=== PATIENT | female | born 1965 | race Caucasian/White ===

== ENCOUNTER 2017-05-29 18:47 | Emergency (ER) | payer MEDICAID ==
--- NOTE | 2017-05-29 19:19 | EDM.PDOC ---
ED HPI GENERAL MEDICAL PROBLEM - General Chief Complaint: ENT Problem Stated Complaint: EAR AND THROAT HURT Time Seen by Provider: 05/29/17 18:51 Source of Information: Reports: Patient History Limitations: Reports: No Limitations - History of Present Illness INITIAL COMMENTS - FREE TEXT/NARRATIVE: 51 y.o.w.f came to the ed due to a sore throat and ear pain for 1 day. Pt is able to swallow well, with some discomfort, however. No F/C/N/V or any other acute medical issues. BP 135/67 Pulse ox 99% on RA Temp 36.7 Pulse 78 RR 18 Onset Date: 05/28/17 Onset Time: 07:00 Duration: Hour(s): Location: Reports: Face Quality: Reports: Ache, Burning Severity: Mild Improves with: Reports: None Worsens with: Reports: None Context: Reports: Other Associated Symptoms: Reports: No Other Symptoms Treatments [employer] ADMINISTRATOR: Reports: Acetaminophen, NSAIDS Sore throat, sore L ear Pain Score (Numeric/FACES): 8 - Related Data Allergies Allergy/AdvReac Type Severity Reaction Status Date / Time bee venom protein (honey bee) Allergy Swelling Verified 05/29/17 18:56 Penicillins Allergy Bronchospas Verified 05/29/17 18:56 ms wool Allergy Rash Verified 05/29/17 18:56 Home Meds: Home Meds EPINEPHrine [Epinephrine] 0.3 mg IM ASDIRECTED 05/29/17 [History] Lisinopril/Hydrochlorothiazide [Lisinopril-Hctz 10-12.5 mg Tab] 1 tab DAILY [History] Ondansetron [Zofran ODT] 4 mg PO Q6H PRN 05/29/17 [History] Oxybutynin 5 mg PO BID 05/29/17 [History] Venlafaxine HCl [Venlafaxine ER] 150 mg DAILY 05/29/17 [History] atorvaSTATin [Lipitor] 10 mg DAILY 05/29/17 [History] valACYclovir [Valtrex] 1,000 mg PO BID PRN 05/29/17 [History] Past Medical History Cardiovascular History: Reports: High Cholesterol, Hypertension Gastrointestinal History: Reports: GERD Genitourinary History: Reports: Urinary Incontinence Other Genitourinary History: nicked bladder during hyst & had problems with incont since-- is on Ditropan for same. DATA TECHNICAL LEAD History: Reports: Other OB/BYN History: [id number] Neurological History: Reports: Migraines Psychiatric History: Reports: Depression Endocrine/Metabolic History: Reports: Obesity/BMI 30+, Other (See Below) Other Endocrine/Metabolic History: is borderline diabetic - Infectious Disease History Infectious Disease History: Reports: Chicken Pox - Past Surgical History HEENT Surgical History: Reports: Adenoidectomy, Oral Surgery, Tonsillectomy GI Surgical History: Reports: None Female Surgical History: Reports: Section, Hysterectomy, Salpingo- Oophorectomy Social & Family History - Family History Family Medical History: Noncontributory - Tobacco Use Smoking Status *Q: Former Smoker Years of Tobacco use: 5 Used Tobacco, but Quit: Yes Month/Year Tobacco Last Used: feb - Caffeine Use Caffeine Use: Reports: Coffee, Energy Drinks, Soda - Recreational Drug Use Recreational Drug Use: No ED ROS ENT - Review of Systems Review Of Systems: See Below Constitutional: Reports: No Symptoms HEENT: Reports: Ear Pain, Throat Pain Respiratory: Reports: No Symptoms Cardiovascular: Reports: No Symptoms Endocrine: Reports: No Symptoms GI/Abdominal: Reports: No Symptoms : Reports: No Symptoms Musculoskeletal: Reports: No Symptoms Skin: Reports: No Symptoms Neurological: Reports: No Symptoms Psychiatric: Reports: No Symptoms Hematologic/Lymphatic: Reports: No Symptoms Immunologic: Reports: No Symptoms ED EXAM, ENT - Physical Exam Exam: See Below Exam Limited By: No Limitations General Appearance: Alert, WD/WN, Mild Distress Eye Exam: Bilateral Eye: Normal Inspection Ears: TM Dullness, TM Erythema Nose: Normal Inspection, Normal Mucousa, No Blood Mouth/Throat: Other (Pharygitis) Head: Atraumatic, Normocephalic Neck: Normal Inspection, Supple, Non-Tender, Full Range of Motion Respiratory/Chest: No Respiratory Distress, Lungs Clear, Normal Breath Sounds, No Accessory Muscle Use, Chest Non-Tender Cardiovascular: Normal Peripheral Pulses, Regular Rate, Rhythm, No Edema, No Gallop, No Murmur, No Rub GI/Abdominal: Normal Bowel Sounds, Soft, Non-Tender, No Organomegaly, No Distention (Female) Exam: Deferred Rectal (Female) Exam: Deferred Back: Normal Inspection, Full Range of Motion Extremities: Normal Inspection, Normal Range of Motion Neurological: Alert, Oriented, CN II-XII Intact, Normal Cognition, Normal Gait Psychiatric: Normal Affect Skin: Warm, Dry, Intact, Normal Color, No Rash Lymphatic: No Adenopathy Course - Vital Signs Text/Narrative:: 51 y.o.w.f came to the ed due to a sore throat and ear pain for 1 day. Pt is able to swallow well, with some discomfort, however. No F/C/N/V or any other acute medical issues. BP 135/67 Pulse ox 99% on RA Temp 36.7 Pulse 78 RR 18 PE: WNWD W F with earpain and a sore throat. R OM/OE Labs: RST was neg, Cx is pending Impression: Otitis media/externa, Pharyngitis strep presumed. Tx: Z pack Plan: D/C with instructions Last Recorded V/S: Last Vital Signs Temp 36.4 C 05/29/17 19:55 Pulse 84 05/29/17 18:51 Resp 17 05/29/17 19:55 BP 134/65 05/29/17 19:55 Pulse Ox 99 05/29/17 18:51 - Orders/Labs/Meds Orders: Active Orders 24 hr Category Date Time Status CULTURE STREP A CONFIRMATION [RM] Stat Lab 05/29/17 19:15 Results STREP SCRN A RAPID W CULT CONF [RM] Stat Lab 05/29/17 19:15 Results Departure - Departure Time of Disposition: 19:56 Disposition: Home, Self-Care 01 Condition: Good Clinical Impression: Otitis Qualifiers: Laterality: right Qualified Code(s): H66.91 - Otitis media, unspecified, right ear Pharyngitis Qualifiers: Pharyngitis/tonsillitis etiology: unspecified etiology Qualified Code(s): J02.9 - Acute pharyngitis, unspecified - Discharge Information Referrals: Meghan Reis PA-C [Primary Care Provider] - Forms: ED Department Discharge Additional Instructions: Please take the meds as recommended, increase water intake, please f/u, come back if your symptoms get worse acutely. - My Orders Last 24 Hours: My Active Orders 05/29/17 19:15 CULTURE STREP A CONFIRMATION [RM] Stat STREP SCRN A RAPID W CULT CONF [RM] Stat - Assessment/Plan Last 24 Hours: My Active Orders 05/29/17 19:15 CULTURE STREP A CONFIRMATION [RM] Stat STREP SCRN A RAPID W CULT CONF [RM] Stat
[2017-05-29] MEDS ORDERED: Azithromycin 250 MG Tab PO ONE (19:58)
== END 2017-05-29 20:06 | disposition home or self-care (01) ==
LOC: FB.ED 18:47
DX: J02.9 Acute pharyngitis, unspecified (principal); H66.91 Otitis media, unspecified, right ear; E78.00 Pure hypercholesterolemia, unspecified; I10 Essential (primary) hypertension; K21.9 Gastro-esophageal reflux disease without esophagitis; F32.9 Major depressive disorder, single episode, unspecified; Z91.030 Bee allergy status; Z88.0 Allergy status to penicillin; Z79.899 Other long term (current) drug therapy; Z87.891 Personal history of nicotine dependence
CPT/HCPCS: 87081; 87880; 99282; A9270

== ENCOUNTER → 2017-08-04 | Day surgery (SDC) | payer BC, MEDICAID ==
[~2017-08-04] MED LIST: Lactated Ringers 1,000 ML IV SCH; Midazolam 1 MG/ML 2 ML SDV IV ONE; Propofol 200 MG/20 ML SDV IV ONE; Sodium Chloride 0.9% 10 ML Syringe FLUSH PRN
--- NOTE | 2017-08-04 11:35 | PCM.OPNOTE ---
- General Post-Op/Procedure Note Date of Surgery/Procedure: 08/04/17 Operative Procedure(s): c scope Findings: normal exam Pre Op Diagnosis: +FIT Post-Op Diagnosis: nl scope Anesthesia Technique: MAC Primary Surgeon: Mike Vergara Anesthesia Provider: Darby Moura Pathology: none Complications: None Condition: Good Free Text/Narrative:: see dictation
--- NOTE | 2017-08-04 12:11 | OR ---
DATE OF OPERATION: 08/04/2017 SURGEON: Mike Vergara MD PROCEDURE PERFORMED: Colonoscopy. PREOPERATIVE DIAGNOSIS: Positive fecal immunological histochemical test. POSTOPERATIVE DIAGNOSIS: Normal scope. INDICATIONS FOR PROCEDURE: This is a 51-year-old white female who was noted to have a positive FIT examination. She was offered and accepted colonoscopy. DESCRIPTION OF PROCEDURE: After an excellent IV sedation was administered, digital rectal exam was performed. No marked abnormality was noted. The flexible colonoscope was inserted and advanced to the cecum without difficulty. The prep was excellent. The following findings were noted. Ascending colon, unremarkable. Transverse colon, unremarkable. Descending colon, unremarkable. Sigmoid and rectum, unremarkable. Colon was deflated as the scope was removed. The patient tolerated the procedure well and was taken to recovery room in a good condition. /[id number] /DIAL
== END | disposition home or self-care (01) ==
LOC: FB.SDS 08:39
PROVIDERS: ATTEND Surgery
DX: R19.5 Other fecal abnormalities (principal); I10 Essential (primary) hypertension; K21.9 Gastro-esophageal reflux disease without esophagitis; M85.80 Other specified disorders of bone density and structure, unspecified site; F33.9 Major depressive disorder, recurrent, unspecified; R73.9 Hyperglycemia, unspecified; Z79.899 Other long term (current) drug therapy; Z88.0 Allergy status to penicillin; Z91.030 Bee allergy status; Z91.048 Other nonmedicinal substance allergy status; Z87.891 Personal history of nicotine dependence
CPT/HCPCS: J2250; J2704; J7120

== ENCOUNTER 2019-10-28 09:05 | Inpatient (IN) | payer OTHER ==
[2019-10-28] MEDS ORDERED: Acetaminophen 325 MG Tab PO ONE (09:44)
[2019-10-28] MEDS ORDERED: Acetaminophen 650 MG Supp RECTAL ONE (09:44)
[2019-10-28] MEDS ORDERED: Ondansetron 4 MG/2 ML SDV IVPUSH ONE (09:45)
[2019-10-28] MEDS ORDERED: Sodium Chloride 0.9% 1,000 ML IV SCH (09:45)
[2019-10-28] MEDS ORDERED: Sodium Chloride 0.9% 10 ML Syringe FLUSH PRN (09:46)
--- NOTE | 2019-10-28 11:07 | EDM.PDOC ---
ED HPI GENERAL MEDICAL PROBLEM - General Chief Complaint: ENT Problem Stated Complaint: SOB, sore throat, vomiting Time Seen by Provider: 10/28/19 10:00 Source of Information: Reports: Patient, Old Records - History of Present Illness INITIAL COMMENTS - FREE TEXT/NARRATIVE: Neelam comes into [facility] ED with cough and sore throat over the past 36 hrs, and apparent fever and emesis this am. 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 She began to feel ill 2 days ago with headache, sore throat, chills, and muscle aches, ate little, and rested. Yesterday, there was nonproductive cough, worsening sore throat, earache, and malaise. This am, she came to the ED and promptly had a 400 ml dark emesis, guiac postive, temp to 102 deg F, tachypnea with 02 sats 97% on RA. She denies abdominal pain or voiding sxs. She took Tylenol at home. Throat, bilateral ears, generalized Pain Score (Numeric/FACES): 10 - Related Data Allergies Allergy/AdvReac Type Severity Reaction Status Date / Time bee venom protein (honey bee) Allergy Swelling Verified 10/28/19 09:31 Penicillins Allergy Bronchospas Verified 10/28/19 09:31 ms wool Allergy Rash Verified 10/28/19 09:31 Home Meds: Home Meds EPINEPHrine [Epinephrine] 0.3 mg IM ASDIRECTED 05/29/17 [History] Venlafaxine HCl [Venlafaxine ER] 150 mg PO DAILY 05/29/17 [History] atorvaSTATin [Lipitor] 10 mg PO DAILY 05/29/17 [History] valACYclovir [Valtrex] 1,000 mg PO DAILY 05/29/17 [History] Acetaminophen [Tylenol Extra Strength] 500 - 1,000 mg PO Q4HR PRN 08/03/17 [History] Naproxen Sodium [Aleve] 220 mg PO BID PRN 08/03/17 [History] SUMAtriptan succinate [Imitrex] 50 mg PO ASDIRECTED PRN 08/03/17 [History] lisinopriL [Prinivil] 40 mg PO DAILY 08/03/17 [History] Omeprazole 40 mg PO ACBREAKFAST 10/28/19 [History] Oxybutynin [Oxybutynin ER] 15 mg PO DAILY 10/28/19 [History] Past Medical History HEENT History: Reports: Impaired Vision Cardiovascular History: Reports: High Cholesterol, Hypertension Respiratory History: Reports: None Gastrointestinal History: Reports: GERD Genitourinary History: Reports: Urinary Incontinence Other Genitourinary History: nicked bladder during hyst & had problems with incont since-- is on Ditropan for same. 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 EPTOPIC . PARA III AB III Musculoskeletal History: Reports: None Neurological History: Reports: Migraines Psychiatric History: Reports: Depression Endocrine/Metabolic History: Reports: Obesity/BMI 30+, Other (See Below) Hematologic History: Reports: Anemia Immunologic History: Reports: None Oncologic (Cancer) History: Reports: None Dermatologic History: Reports: None - Infectious Disease History Infectious Disease History: Reports: Chicken Pox - Past Surgical History Head Surgeries/Procedures: Reports: None HEENT Surgical History: Reports: Adenoidectomy, Oral Surgery, Tonsillectomy GI Surgical History: Reports: None Female Surgical History: Reports: Section, Hysterectomy, Salpingo- Oophorectomy Social & Family History - Family History Family Medical History: Noncontributory GI: Reports: None - Caffeine Use Caffeine Use: Reports: Coffee, Energy Drinks, Soda ED ROS GENERAL - Review of Systems Review Of Systems: See Below Constitutional: Reports: Fever, Chills, Malaise, Weakness, Decreased Appetite HEENT: Reports: Ear Pain, Throat Pain Respiratory: Reports: Shortness of Breath, Cough Cardiovascular: Reports: No Symptoms Endocrine: Reports: Fatigue GI/Abdominal: Reports: Decreased Appetite, Nausea, Vomiting : Reports: No Symptoms Musculoskeletal: Reports: No Symptoms Skin: Reports: No Symptoms Neurological: Reports: No Symptoms Psychiatric: Reports: No Symptoms Hematologic/Lymphatic: Reports: No Symptoms Immunologic: Reports: No Symptoms ED EXAM, GENERAL - Physical Exam Exam: See Below Exam Limited By: No Limitations General Appearance: Alert, WD/WN, Mild Distress, Obese Eye Exam: Bilateral Eye: EOMI, Normal Inspection, PERRL Ears: Normal External Exam Nose: Normal Inspection Throat/Mouth: Normal Lips, Normal Gums, Normal Voice, Other (uvular edema and erythema, faucial erythema) Head: Atraumatic, Normocephalic Neck: Normal Inspection, Supple, Non-Tender Respiratory/Chest: No Respiratory Distress, Normal Breath Sounds, No Accessory Muscle Use, Crackles Cardiovascular: Normal Peripheral Pulses, Regular Rate, Rhythm, No Murmur GI/Abdominal: Normal Bowel Sounds, Soft, Non-Tender, No Organomegaly, No Distention, No Mass (Female) Exam: Deferred Rectal (Female) Exam: Deferred Back Exam: Normal Inspection Extremities: Normal Inspection Neurological: Alert, Oriented, CN II-XII Intact, Normal Cognition, Normal Gait, No Motor/Sensory Deficits Psychiatric: Normal Affect, Normal Mood Skin Exam: Warm, Dry, Intact, Normal Color, Tattoo(s) Lymphatic: No Adenopathy Course - Vital Signs Text/Narrative:: Following assessment, I obtained screening labs including Covid NEG, CRP 6.5, lactic acid 1.9, Hgb 13/8 gm, WBC 15,700, w 86 PMNs, 5 B, plts wnl; d dimer 1.39, lipase 60; chest x ray: heart normal size, no active infiltrates. A follow up CBC noted Hgb 12 gm, WBC 14,500; Infl Rapid Screen neg. Case discussed with hospitalist, and she will be admitted for further evaluation. Last Recorded V/S: Last Vital Signs Temp 39.3 C H 10/28/19 09:10 Pulse 115 H 10/28/19 09:10 Resp 36 H 10/28/19 09:10 BP 134/72 10/28/19 09:10 Pulse Ox 97 10/28/19 09:10 - Orders/Labs/Meds Orders: Active Orders 24 hr Category Date Time Status Chest 1V Frontal [CR] Stat Exams 10/28/19 09:44 Taken CULTURE BLOOD [BC] Urgent Lab 10/28/19 09:30 Received CULTURE BLOOD [BC] Urgent Lab 10/28/19 09:35 Results CULTURE STREP A CONFIRMATION [RM] Stat Lab 10/28/19 10:26 Results STREP SCRN A RAPID W CULT CONF [] Stat Lab 10/28/19 10:26 Results Dextrose 5%-Lactated Ringers 1,000 ml Med 10/28/19 11:30 Active IV ASDIRECTED Sodium Chloride 0.9% [Normal Saline] 1,000 ml Med 10/28/19 09:45 Active IV ASDIRECTED Sodium Chloride 0.9% [Saline Flush] Med 10/28/19 09:46 Active 10 ml FLUSH ASDIRECTED PRN Blood Culture x2 Reflex Set [OM.PC] Urgent Ot 10/28/19 09:46 Ordered Isolation [COMM] Routine [facility] 10/28/19 11:08 Ordered Peripheral IV Insertion Adult [OM.PC] Routine Ot 10/28/19 09:46 Ordered Medication Orders Sodium Chloride (Normal Saline) 1,000 mls @ 500 mls/hr IV ASDIRECTED CALLUM Last Admin: 10/28/19 09:50 Dose: 500 mls/hr Documented by: JASMIN Dextrose/Lactated Ringer's (Dextrose 5%-Lactated Ringers) 1,000 mls @ 150 mls/hr IV ASDIRECTED CALLUM Sodium Chloride (Saline Flush) 10 ml FLUSH ASDIRECTED PRN PRN Reason: Keep Vein Open Last Admin: 10/28/19 09:50 Dose: 10 ml Documented by: JASMIN Labs: Laboratory Tests 10/28/19 10/28/19 10/28/19 Range/Units 09:30 09:30 09:30 WBC 15.7 H (4.5-12.0) X10-3/uL RBC 4.75 (3.23-5.20) x10(6)uL Hgb 13.8 (11.5-15.5) g/dL Hct 42.9 (30.0-51.3) % MCV 90.3 (80-96) fL MCH 29.1 (27.7-33.6) pg MCHC 32.2 (32.2-35.4) g/dL RDW 15.2 (11.5-15.5) % Plt Count 212 (125-369) X10(3)uL MPV 8.4 (7.4-10.4) fL Neut % (Auto) (46-82) % Lymph % (Auto) (13-37) % [place] % (Auto) (4-12) % Eos % (Auto) (1.0-5.0) % Baso % (Auto) (0-2) % Neut # (Auto) (1.6-8.3) # Lymph # (Auto) (0.6-5.0) # [place] # (Auto) (0.0-1.3) # Eos # (Auto) (0.0-0.8) # Baso # (Auto) (0.0-0.2) # Add Manual Diff Yes Neutrophils % (Manual) 86 H (46-82) % Band Neutrophils % 5 (0-6) % Lymphocytes % (Manual) 5 L (13-37) % Monocytes % (Manual) 3 L (4-12) % Metamyelocytes % 1 H (0-0) % D-Dimer, Quantitative 1.39 H (0.0-0.59) mg/LFEU Sodium 133 L (135-145) mmol/L Potassium 4.4 (3.5-5.3) mmol/L Chloride 96 L (100-110) mmol/L Carbon Dioxide 29 (21-32) mmol/L BUN 10 (7-18) mg/dL Creatinine 0.9 (0.55-1.02) mg/dL Est Cr Clr Drug Dosing TNP Estimated GFR (MDRD) > 60 (>60) BUN/Creatinine Ratio 11.1 (9-20) Glucose 124 H (80-116) mg/dL Lactic Acid (0.4-2.0) mmol/L Calcium 8.3 L (8.6-10.2) mg/dL Total Bilirubin 0.5 (0.1-1.3) mg/dL AST 30 H (5-25) IU/L ALT 35 (12-36) U/L Alkaline Phosphatase 50 L (56-112) IU/L C-Reactive Protein (0.5-0.9) mg/dL Total Protein 6.1 (6.0-8.0) g/dL Albumin 3.2 L (3.5-5.2) g/dL Globulin 2.9 g/dL Albumin/Globulin Ratio 1.1 Lipase (73-393) U/L Urine Color (YELLOW) Urine Appearance (CLEAR) Urine pH (5.0-6.5) Ur Specific [place] (1.010-1.025) Urine Protein (NEGATIVE) mg/dL Urine Glucose (UA) (NORMAL) mg/dL Urine Ketones (NEGATIVE) mg/dL Urine Occult Blood (NEGATIVE) Urine Nitrite (NEGATIVE) Urine Bilirubin (NEGATIVE) Urine Urobilinogen (NEGATIVE) mg/dL Ur Leukocyte Esterase (NEGATIVE) Urine RBC (0-5) Urine WBC (0-5) Ur Squamous Epith Cells (NS,R,O) Urine Bacteria (NS) SARS-CoV-2 RNA (LAWSON) (NEGATIVE) 10/28/19 10/28/19 10/28/19 Range/Units 09:30 09:30 10:00 WBC (4.5-12.0) X10-3/uL RBC (3.23-5.20) x10(6)uL Hgb (11.5-15.5) g/dL Hct (30.0-51.3) % MCV (80-96) fL MCH (27.7-33.6) pg MCHC (32.2-35.4) g/dL RDW (11.5-15.5) % Plt Count (125-369) X10(3)uL MPV (7.4-10.4) fL Neut % (Auto) (46-82) % Lymph % (Auto) (13-37) % [place] % (Auto) (4-12) % Eos % (Auto) (1.0-5.0) % Baso % (Auto) (0-2) % Neut # (Auto) (1.6-8.3) # Lymph # (Auto) (0.6-5.0) # [place] # (Auto) (0.0-1.3) # Eos # (Auto) (0.0-0.8) # Baso # (Auto) (0.0-0.2) # Add Manual Diff Neutrophils % (Manual) (46-82) % Band Neutrophils % (0-6) % Lymphocytes % (Manual) (13-37) % Monocytes % (Manual) (4-12) % Metamyelocytes % (0-0) % D-Dimer, Quantitative (0.0-0.59) mg/LFEU Sodium (135-145) mmol/L Potassium (3.5-5.3) mmol/L Chloride (100-110) mmol/L Carbon Dioxide (21-32) mmol/L BUN (7-18) mg/dL Creatinine (0.55-1.02) mg/dL Est Cr Clr Drug Dosing Estimated GFR (MDRD) (>60) BUN/Creatinine Ratio (9-20) Glucose (80-116) mg/dL Lactic Acid 1.9 (0.4-2.0) mmol/L Calcium (8.6-10.2) mg/dL Total Bilirubin (0.1-1.3) mg/dL AST (5-25) IU/L ALT (12-36) U/L Alkaline Phosphatase (56-112) IU/L C-Reactive Protein 6.5 H* (0.5-0.9) mg/dL Total Protein (6.0-8.0) g/dL Albumin (3.5-5.2) g/dL Globulin g/dL Albumin/Globulin Ratio Lipase (73-393) U/L Urine Color (YELLOW) Urine Appearance (CLEAR) Urine pH (5.0-6.5) Ur Specific [place] (1.010-1.025) Urine Protein (NEGATIVE) mg/dL Urine Glucose (UA) (NORMAL) mg/dL Urine Ketones (NEGATIVE) mg/dL Urine Occult Blood (NEGATIVE) Urine Nitrite (NEGATIVE) Urine Bilirubin (NEGATIVE) Urine Urobilinogen (NEGATIVE) mg/dL Ur Leukocyte Esterase (NEGATIVE) Urine RBC (0-5) Urine WBC (0-5) Ur Squamous Epith Cells (NS,R,O) Urine Bacteria (NS) SARS-CoV-2 RNA (LAWSON) Negative (NEGATIVE) 10/28/19 10/28/19 10/28/19 Range/Units 10:05 12:50 13:25 WBC 14.5 H (4.5-12.0) X10-3/uL RBC 4.08 (3.23-5.20) x10(6)uL Hgb 12.0 (11.5-15.5) g/dL Hct 36.3 (30.0-51.3) % MCV 89.1 (80-96) fL MCH 29.5 (27.7-33.6) pg MCHC 33.1 (32.2-35.4) g/dL RDW 14.8 (11.5-15.5) % Plt Count 196 (125-369) X10(3)uL MPV 8.4 (7.4-10.4) fL Neut % (Auto) 89.3 H (46-82) % Lymph % (Auto) 7.7 L (13-37) % [place] % (Auto) 2.1 L (4-12) % Eos % (Auto) 0 L (1.0-5.0) % Baso % (Auto) 1 (0-2) % Neut # (Auto) 13.0 H (1.6-8.3) # Lymph # (Auto) 1.1 (0.6-5.0) # [place] # (Auto) 0.3 (0.0-1.3) # Eos # (Auto) 0.0 (0.0-0.8) # Baso # (Auto) 0.1 (0.0-0.2) # Add Manual Diff Neutrophils % (Manual) (46-82) % Band Neutrophils % (0-6) % Lymphocytes % (Manual) (13-37) % Monocytes % (Manual) (4-12) % Metamyelocytes % (0-0) % D-Dimer, Quantitative (0.0-0.59) mg/LFEU Sodium (135-145) mmol/L Potassium (3.5-5.3) mmol/L Chloride (100-110) mmol/L Carbon Dioxide (21-32) mmol/L BUN (7-18) mg/dL Creatinine (0.55-1.02) mg/dL Est Cr Clr Drug Dosing Estimated GFR (MDRD) (>60) BUN/Creatinine Ratio (9-20) Glucose (80-116) mg/dL Lactic Acid (0.4-2.0) mmol/L Calcium (8.6-10.2) mg/dL Total Bilirubin (0.1-1.3) mg/dL AST (5-25) IU/L ALT (12-36) U/L Alkaline Phosphatase (56-112) IU/L C-Reactive Protein (0.5-0.9) mg/dL Total Protein (6.0-8.0) g/dL Albumin (3.5-5.2) g/dL Globulin g/dL Albumin/Globulin Ratio Lipase 60 L (73-393) U/L Urine Color Yellow (YELLOW) Urine Appearance Clear (CLEAR) Urine pH 8.0 H (5.0-6.5) Ur Specific [place] 1.010 (1.010-1.025) Urine Protein Negative (NEGATIVE) mg/dL Urine Glucose (UA) Normal (NORMAL) mg/dL Urine Ketones Negative (NEGATIVE) mg/dL Urine Occult Blood Negative (NEGATIVE) Urine Nitrite Negative (NEGATIVE) Urine Bilirubin Negative (NEGATIVE) Urine Urobilinogen Normal (NEGATIVE) mg/dL Ur Leukocyte Esterase Negative (NEGATIVE) Urine RBC 0-5 (0-5) Urine WBC 0-5 (0-5) Ur Squamous Epith Cells Occasional (NS,R,O) Urine Bacteria Rare H (NS) SARS-CoV-2 RNA (LAWSON) (NEGATIVE) Meds: Medications Generic Name Dose Route Start Last Admin Trade Name Freq PRN Reason Stop Dose Admin Sodium Chloride 1,000 mls @ 500 mls/hr 10/28/19 09:45 10/28/19 09:50 Normal Saline IV 500 mls/hr ASDIRECTED CALLUM Administration Dextrose/Lactated Ringer's 1,000 mls @ 150 mls/hr 10/28/19 11:30 Dextrose 5%-Lactated Ringers IV ASDIRECTED CALLUM Sodium Chloride 10 ml 10/28/19 09:46 10/28/19 09:50 Saline Flush FLUSH 10 ml ASDIRECTED PRN Administration Keep Vein Open Discontinued Medications Generic Name Dose Route Start Last Admin Trade Name Kalyani PRN Reason Stop Dose Admin Acetaminophen 650 mg 10/28/19 09:44 10/28/19 09:35 Tylenol PO 10/28/19 09:45 650 mg NOW ONE Administration Acetaminophen 650 mg 10/28/19 09:44 10/28/19 10:17 Tylenol RECTAL 10/28/19 09:45 650 mg NOW ONE Administration Ondansetron HCl 8 mg 10/28/19 09:45 10/28/19 10:14 Zofran IVPUSH 10/28/19 09:46 8 mg ONETIME ONE Administration Pantoprazole Sodium 40 mg 10/28/19 11:08 Protonix Iv IVPUSH 10/28/19 11:09 ONETIME ONE Departure - Departure Time of Disposition: 13:54 Disposition: Admitted As Inpatient 66 Condition: Fair Clinical Impression: Leukocytosis, unspecified Qualifiers: Leukocytosis type: unspecified Qualified Code(s): D72.829 - Elevated white blood cell count, unspecified - Discharge Information *PRESCRIPTION DRUG MONITORING PROGRAM REVIEWED*: Not Applicable *COPY OF PRESCRIPTION DRUG MONITORING REPORT IN PATIENT FABIAN: Not Applicable Referrals: PCP,None [Primary Care Provider] - Forms: ED Department Discharge Sepsis Event Note (ED) - Evaluation Sepsis Screening Result: Possible Sepsis Risk - Focused Exam Vital Signs: Vital Signs Temp Pulse Resp BP Pulse Ox 10/28/19 09:10 39.3 C H 115 H 36 H 134/72 97 - Problem List & Annotations (1) Leukocytosis, unspecified SNOMED Code(s): 665588915, [id number] Code(s): D72.829 - ELEVATED WHITE BLOOD CELL COUNT, UNSPECIFIED Status: Acute Current Visit: Yes Annotation/Comment:: Hospitalist to assume care and continue medical management. Qualifiers: Leukocytosis type: unspecified Qualified Code(s): D72.829 - Elevated white blood cell count, unspecified - Problem List Review Problem List Initiated/Reviewed/Updated: Yes - My Orders Last 24 Hours: My Active Orders 10/28/19 09:30 CULTURE BLOOD [BC] Urgent 10/28/19 09:35 CULTURE BLOOD [BC] Urgent 10/28/19 09:44 Chest 1V Frontal [CR] Stat 10/28/19 09:45 Sodium Chloride 0.9% [Normal Saline] 1,000 ml IV ASDIRECTED 10/28/19 09:46 Sodium Chloride 0.9% [Saline Flush] 10 ml FLUSH ASDIRECTED PRN Blood Culture x2 Reflex Set [OM.PC] Urgent Peripheral IV Insertion Adult [OM.PC] Routine 10/28/19 10:26 CULTURE STREP A CONFIRMATION [RM] Stat STREP SCRN A RAPID W CULT CONF [RM] Stat 10/28/19 11:08 Isolation [COMM] Routine 10/28/19 11:30 Dextrose 5%-Lactated Ringers 1,000 ml IV ASDIRECTED - Assessment/Plan Last 24 Hours: My Active Orders 10/28/19 09:30 CULTURE BLOOD [BC] Urgent 10/28/19 09:35 CULTURE BLOOD [BC] Urgent 10/28/19 09:44 Chest 1V Frontal [CR] Stat 10/28/19 09:45 Sodium Chloride 0.9% [Normal Saline] 1,000 ml IV ASDIRECTED 10/28/19 09:46 Sodium Chloride 0.9% [Saline Flush] 10 ml FLUSH ASDIRECTED PRN Blood Culture x2 Reflex Set [OM.PC] Urgent Peripheral IV Insertion Adult [OM.PC] Routine 10/28/19 10:26 CULTURE STREP A CONFIRMATION [RM] Stat STREP SCRN A RAPID W CULT CONF [RM] Stat 10/28/19 11:08 Isolation [COMM] Routine 10/28/19 11:30 Dextrose 5%-Lactated Ringers 1,000 ml IV ASDIRECTED Plan: Per hospitalist.
[2019-10-28] MEDS ORDERED: Pantoprazole 40 MG Vial IVPUSH ONE (11:08)
[2019-10-28] MEDS ORDERED: Lactated Ringers 1,000 ML IV ONE (11:30)
[2019-10-28] MEDS ORDERED: Dextrose 5%-Lactated Ringers 1,000 ML IV SCH (11:30)
[2019-10-28] MEDS ORDERED: Pantoprazole 40 MG Vial ONE (13:54)
[2019-10-28] MEDS: Lactated Ringers 1,000 ML IV SCH ×2 (14:20→22:18)
[2019-10-28] MEDS ORDERED: Ondansetron 4 MG/2 ML SDV IVPUSH PRN (14:35)
--- NOTE | 2019-10-28 14:52 | PCM.HP.2 ---
H&P History of Present Illness - General Date of Service: 10/28/19 Admit Problem/Dx: Admission Diagnosis/Problem Admission Diagnosis/Problem Leukocytosis Source of Information: Patient, EMS Notes Reviewed - History of Present Illness Initial Comments - Free Text/Narative: Neelam is 54 yr old female that presented to [facility] ED for 3 day history of non-productive cough, sore throat, muscle aches, headaches, chills. 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 She was not aware she had a fever until it was checked here, it was 102F. She was 97% RA. Told ER doc that she had an emesis this morning but stated to me that she had some nausea but no vomiting until she was in the ED, she had a 400 cc coffee ground emesis in ER that was guaiac positive for blood. History of heartburn, takes Omeprazole but never had an EGD before. She regularly sees Meghan Reis NP at [facility]. She took Tylenol this morning for headache/body aches. In ER her WBC was 15.7, 86% neutrophils, lactic acid 1.9, CRP 6.5, D Dimer 1.39. Sodium 133, Chloride 96, Creatinine 0.9. ALT 35, AST 30, Alkaline phosphatase 50, albumin 3.2. Lipase low at 60. COVID was negative. Influenza negative. Strep negative. CXR, portable unremarkable. Throat, bilateral ears, generalized Pain Score (Numeric/FACES): 10 - Related Data Allergies/Adverse Reactions: Allergies Allergy/AdvReac Type Severity Reaction Status Date / Time bee venom protein (honey bee) Allergy Swelling Verified 10/28/19 09:31 Penicillins Allergy Bronchospas Verified 10/28/19 09:31 ms wool Allergy Rash Verified 10/28/19 09:31 Home Medications: Home Meds EPINEPHrine [Epinephrine] 0.3 mg IM ASDIRECTED 05/29/17 [History] Venlafaxine HCl [Venlafaxine ER] 150 mg PO DAILY 05/29/17 [History] atorvaSTATin [Lipitor] 10 mg PO DAILY 05/29/17 [History] valACYclovir [Valtrex] 1,000 mg PO DAILY 05/29/17 [History] Acetaminophen [Tylenol Extra Strength] 500 - 1,000 mg PO Q4HR PRN 08/03/17 [History] Naproxen Sodium [Aleve] 220 mg PO BID PRN 08/03/17 [History] SUMAtriptan succinate [Imitrex] 50 mg PO ASDIRECTED PRN 08/03/17 [History] lisinopriL [Prinivil] 40 mg PO DAILY 08/03/17 [History] Omeprazole 40 mg PO ACBREAKFAST 10/28/19 [History] Oxybutynin [Oxybutynin ER] 15 mg PO DAILY 10/28/19 [History] Past Medical History HEENT History: Reports: Impaired Vision Cardiovascular History: Reports: High Cholesterol, Hypertension Respiratory History: Reports: None Gastrointestinal History: Reports: GERD Genitourinary History: Reports: Urinary Incontinence Other Genitourinary History: nicked bladder during hyst & had problems with incont since-- is on Ditropan for same. 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 EPTOPIC . PARA III AB III Musculoskeletal History: Reports: None Neurological History: Reports: Migraines Psychiatric History: Reports: Depression Endocrine/Metabolic History: Reports: Obesity/BMI 30+, Other (See Below) Hematologic History: Reports: Anemia Immunologic History: Reports: None Oncologic (Cancer) History: Reports: None Dermatologic History: Reports: None - Infectious Disease History Infectious Disease History: Reports: Chicken Pox - Past Surgical History Head Surgeries/Procedures: Reports: None HEENT Surgical History: Reports: Adenoidectomy, Oral Surgery, Tonsillectomy GI Surgical History: Reports: None Female Surgical History: Reports: Section, Hysterectomy, Salpingo- Oophorectomy Social & Family History - Family History Family Medical History: Noncontributory GI: Reports: None - Tobacco Use Smoking Status *Q: Never Smoker - Caffeine Use Caffeine Use: Reports: Coffee, Energy Drinks, Soda - Alcohol Use Days Per Week of Alcohol Use: 7 Number of Drinks Per Day: 2 Total Drinks Per Week: 14 - Recreational Drug Use Recreational Drug Use: No H&P Review of Systems - Review of Systems: Review Of Systems: See Below General: Reports: Fever, Chills, Malaise, Fatigue HEENT: Reports: Headaches, Post Nasal Drip, Sinus Congestion, Sore Throat Pulmonary: Reports: Shortness of Breath, Cough. Denies: Sputum, Hemoptysis Cardiovascular: Reports: No Symptoms Gastrointestinal: Reports: Abdominal Pain (epigastric), Decreased Appetite, Hematemesis, Nausea, Vomiting. Denies: Black Stool, Bloody Stool, Constipation, Diarrhea, Difficulty Swallowing Genitourinary: Reports: No Symptoms Musculoskeletal: Reports: Muscle Pain Skin: Reports: No Symptoms Psychiatric: Reports: No Symptoms Neurological: Reports: Headache. Denies: Trouble Speaking, Difficulty Walking Hematologic/Lymphatic: Reports: No Symptoms Immunologic: Reports: Environmental Allergy (bee, wool) Exam - Exam Exam: See Below - Vital Signs Vital Signs: Last Vital Signs Temp 102.7 F H 10/28/19 09:10 Pulse 115 H 10/28/19 09:10 Resp 36 H 10/28/19 09:10 BP 134/72 10/28/19 09:10 Pulse Ox 97 10/28/19 09:10 Weight: 168 lb - Exam General: Alert, Oriented, Cooperative. No: Mild Distress HEENT: PERRLA, EACs Clear, EOMI, Hearing Intact, Mucosa Moist & [place], Nares Patent, Normal Nasal Septum, TMs Clear, Other (Conjunctiva: injected bilateral. Posterior pharynx: erythematous, tonsils absent; frontal sinus TTP, maxillary sinus NT.) Neck: Supple, Trachea Midline. No: Lymphadenopathy Lungs: Clear to Auscultation, Normal Respiratory Effort. No: Crackles, Rales, Wheezing Cardiovascular: Regular Rate, Regular Rhythm, Normal S1, Normal S2. No: Systolic Murmur GI/Abdominal Exam: Normal Bowel Sounds, Soft, No Distention, Guarding, Tender (epigastric). No: Rigid, Rebound (Female) Exam: Deferred Rectal (Female) Exam: Deferred Back Exam: No: CVA Tenderness (R), CVA Tenderness (L) Extremities: No Pedal Edema, Normal Capillary Refill Peripheral Pulses: 2+: Radial (L), Radial (R), Posterior Tibial (L), Posterior Tibial (R), Dorsalis Pedis (L), Dorsalis Pedis (R) Skin: Warm, Dry, Intact Neurological: Cranial Nerves Intact, Normal Speech, Normal Tone Neuro Extensive - Mental Status: Normal Mood/Affect, Normal Cognition - Patient Data Lab Results Last 24 hrs: Laboratory Results - last 24 hr 10/28/19 10/28/1920 Range/Units 09:30 09:30 09:30 WBC 15.7 H (4.5-12.0) X10-3/uL RBC 4.75 (3.23-5.20) x10(6)uL Hgb 13.8 (11.5-15.5) g/dL Hct 42.9 (30.0-51.3) % MCV 90.3 (80-96) fL MCH 29.1 (27.7-33.6) pg MCHC 32.2 (32.2-35.4) g/dL RDW 15.2 (11.5-15.5) % Plt Count 212 (125-369) X10(3)uL MPV 8.4 (7.4-10.4) fL Neut % (Auto) (46-82) % Lymph % (Auto) (13-37) % [place] % (Auto) (4-12) % Eos % (Auto) (1.0-5.0) % Baso % (Auto) (0-2) % Neut # (Auto) (1.6-8.3) # Lymph # (Auto) (0.6-5.0) # [place] # (Auto) (0.0-1.3) # Eos # (Auto) (0.0-0.8) # Baso # (Auto) (0.0-0.2) # Add Manual Diff Yes Neutrophils % (Manual) 86 H (46-82) % Band Neutrophils % 5 (0-6) % Lymphocytes % (Manual) 5 L (13-37) % Monocytes % (Manual) 3 L (4-12) % Metamyelocytes % 1 H (0-0) % D-Dimer, Quantitative 1.39 H (0.0-0.59) mg/LFEU Sodium 133 L (135-145) mmol/L Potassium 4.4 (3.5-5.3) mmol/L Chloride 96 L (100-110) mmol/L Carbon Dioxide 29 (21-32) mmol/L BUN 10 (7-18) mg/dL Creatinine 0.9 (0.55-1.02) mg/dL Est Cr Clr Drug Dosing TNP Estimated GFR (MDRD) > 60 (>60) BUN/Creatinine Ratio 11.1 (9-20) Glucose 124 H (80-116) mg/dL Lactic Acid (0.4-2.0) mmol/L Calcium 8.3 L (8.6-10.2) mg/dL Total Bilirubin 0.5 (0.1-1.3) mg/dL AST 30 H (5-25) IU/L ALT 35 (12-36) U/L Alkaline Phosphatase 50 L (56-112) IU/L C-Reactive Protein (0.5-0.9) mg/dL Total Protein 6.1 (6.0-8.0) g/dL Albumin 3.2 L (3.5-5.2) g/dL Globulin 2.9 g/dL Albumin/Globulin Ratio 1.1 Lipase (73-393) U/L Urine Color (YELLOW) Urine Appearance (CLEAR) Urine pH (5.0-6.5) Ur Specific [place] (1.010-1.025) Urine Protein (NEGATIVE) mg/dL Urine Glucose (UA) (NORMAL) mg/dL Urine Ketones (NEGATIVE) mg/dL Urine Occult Blood (NEGATIVE) Urine Nitrite (NEGATIVE) Urine Bilirubin (NEGATIVE) Urine Urobilinogen (NEGATIVE) mg/dL Ur Leukocyte Esterase (NEGATIVE) Urine RBC (0-5) Urine WBC (0-5) Ur Squamous Epith Cells (NS,R,O) Urine Bacteria (NS) SARS-CoV-2 RNA (LAWSON) (NEGATIVE) 10/28/19 10/28/19 10/28/19 Range/Units 09:30 09:30 10:00 WBC (4.5-12.0) X10-3/uL RBC (3.23-5.20) x10(6)uL Hgb (11.5-15.5) g/dL Hct (30.0-51.3) % MCV (80-96) fL MCH (27.7-33.6) pg MCHC (32.2-35.4) g/dL RDW (11.5-15.5) % Plt Count (125-369) X10(3)uL MPV (7.4-10.4) fL Neut % (Auto) (46-82) % Lymph % (Auto) (13-37) % [place] % (Auto) (4-12) % Eos % (Auto) (1.0-5.0) % Baso % (Auto) (0-2) % Neut # (Auto) (1.6-8.3) # Lymph # (Auto) (0.6-5.0) # [place] # (Auto) (0.0-1.3) # Eos # (Auto) (0.0-0.8) # Baso # (Auto) (0.0-0.2) # Add Manual Diff Neutrophils % (Manual) (46-82) % Band Neutrophils % (0-6) % Lymphocytes % (Manual) (13-37) % Monocytes % (Manual) (4-12) % Metamyelocytes % (0-0) % D-Dimer, Quantitative (0.0-0.59) mg/LFEU Sodium (135-145) mmol/L Potassium (3.5-5.3) mmol/L Chloride (100-110) mmol/L Carbon Dioxide (21-32) mmol/L BUN (7-18) mg/dL Creatinine (0.55-1.02) mg/dL Est Cr Clr Drug Dosing Estimated GFR (MDRD) (>60) BUN/Creatinine Ratio (9-20) Glucose (80-116) mg/dL Lactic Acid 1.9 (0.4-2.0) mmol/L Calcium (8.6-10.2) mg/dL Total Bilirubin (0.1-1.3) mg/dL AST (5-25) IU/L ALT (12-36) U/L Alkaline Phosphatase (56-112) IU/L C-Reactive Protein 6.5 H* (0.5-0.9) mg/dL Total Protein (6.0-8.0) g/dL Albumin (3.5-5.2) g/dL Globulin g/dL Albumin/Globulin Ratio Lipase (73-393) U/L Urine Color (YELLOW) Urine Appearance (CLEAR) Urine pH (5.0-6.5) Ur Specific [place] (1.010-1.025) Urine Protein (NEGATIVE) mg/dL Urine Glucose (UA) (NORMAL) mg/dL Urine Ketones (NEGATIVE) mg/dL Urine Occult Blood (NEGATIVE) Urine Nitrite (NEGATIVE) Urine Bilirubin (NEGATIVE) Urine Urobilinogen (NEGATIVE) mg/dL Ur Leukocyte Esterase (NEGATIVE) Urine RBC (0-5) Urine WBC (0-5) Ur Squamous Epith Cells (NS,R,O) Urine Bacteria (NS) SARS-CoV-2 RNA (LAWSON) Negative (NEGATIVE) 10/28/19 10/28/19 10/28/19 Range/Units 10:05 12:50 13:25 WBC 14.5 H (4.5-12.0) X10-3/uL RBC 4.08 (3.23-5.20) x10(6)uL Hgb 12.0 (11.5-15.5) g/dL Hct 36.3 (30.0-51.3) % MCV 89.1 (80-96) fL MCH 29.5 (27.7-33.6) pg MCHC 33.1 (32.2-35.4) g/dL RDW 14.8 (11.5-15.5) % Plt Count 196 (125-369) X10(3)uL MPV 8.4 (7.4-10.4) fL Neut % (Auto) 89.3 H (46-82) % Lymph % (Auto) 7.7 L (13-37) % [place] % (Auto) 2.1 L (4-12) % Eos % (Auto) 0 L (1.0-5.0) % Baso % (Auto) 1 (0-2) % Neut # (Auto) 13.0 H (1.6-8.3) # Lymph # (Auto) 1.1 (0.6-5.0) # [place] # (Auto) 0.3 (0.0-1.3) # Eos # (Auto) 0.0 (0.0-0.8) # Baso # (Auto) 0.1 (0.0-0.2) # Add Manual Diff Neutrophils % (Manual) (46-82) % Band Neutrophils % (0-6) % Lymphocytes % (Manual) (13-37) % Monocytes % (Manual) (4-12) % Metamyelocytes % (0-0) % D-Dimer, Quantitative (0.0-0.59) mg/LFEU Sodium (135-145) mmol/L Potassium (3.5-5.3) mmol/L Chloride (100-110) mmol/L Carbon Dioxide (21-32) mmol/L BUN (7-18) mg/dL Creatinine (0.55-1.02) mg/dL Est Cr Clr Drug Dosing Estimated GFR (MDRD) (>60) BUN/Creatinine Ratio (9-20) Glucose (80-116) mg/dL Lactic Acid (0.4-2.0) mmol/L Calcium (8.6-10.2) mg/dL Total Bilirubin (0.1-1.3) mg/dL AST (5-25) IU/L ALT (12-36) U/L Alkaline Phosphatase (56-112) IU/L C-Reactive Protein (0.5-0.9) mg/dL Total Protein (6.0-8.0) g/dL Albumin (3.5-5.2) g/dL Globulin g/dL Albumin/Globulin Ratio Lipase 60 L (73-393) U/L Urine Color Yellow (YELLOW) Urine Appearance Clear (CLEAR) Urine pH 8.0 H (5.0-6.5) Ur Specific [place] 1.010 (1.010-1.025) Urine Protein Negative (NEGATIVE) mg/dL Urine Glucose (UA) Normal (NORMAL) mg/dL Urine Ketones Negative (NEGATIVE) mg/dL Urine Occult Blood Negative (NEGATIVE) Urine Nitrite Negative (NEGATIVE) Urine Bilirubin Negative (NEGATIVE) Urine Urobilinogen Normal (NEGATIVE) mg/dL Ur Leukocyte Esterase Negative (NEGATIVE) Urine RBC 0-5 (0-5) Urine WBC 0-5 (0-5) Ur Squamous Epith Cells Occasional (NS,R,O) Urine Bacteria Rare H (NS) SARS-CoV-2 RNA (LAWSON) (NEGATIVE) Result Diagrams: 10/28/19 13:25 10/28/19 09:30 Ghassan Results Last 24 hrs: Microbiology 10/28/19 11:00 Gastric Occult Blood - Final Gastric Fluid 10/28/19 11:08 Influenza Type A Antigen Screen - Final Nasal Aspirate, Unspecified NEGATIVE INFLUENZA A VIRUS AG REFERENCE RANGE: NEGATIVE Influenza Type B Antigen Screen - Final NEGATIVE INFLUENZA B VIRUS AG REFERENCE RANGE: NEGATIVE 10/28/19 10:26 Group A Streptococcus Rapid Screen - Final Throat NEGATIVE STREP A SCREEN REFERENCE RANGE: NEGATIVE 10/28/19 09:35 Anaerobic Blood Culture - Final Blood - Venous - Lab Draw Sepsis Event Note - Evaluation Sepsis Screening Result: Possible Sepsis Risk Possible Source of Sepsis: Unknown - Focused Exam Vital Signs: Vital Signs Temp Pulse Resp BP Pulse Ox 10/28/19 09:10 102.7 F H 115 H 36 H 134/72 97 *Q Meaningful Use (ADM) - VTE *Q VTE Pharmacological Contraindications *Q: Active Hemorrhage - VTE Risk Assess *Q Each Risk Factor Represents 1 Point: Age 41 - 59 years Total Score 1 Point Risk Factors: 1 Each Risk Factor Represents 2 Points: None Total Score 2 Point Risk Factors: 0 Each Risk Factor Represents 3 Points: None Total Score 3 Point Risk Factors: 0 Each Risk Factor Represents 5 Points: None Total Score 5 Point Risk Factors: 0 Venous Thromboembolism Risk Factor Score *Q: 1 - Problem List (1) Leukocytosis, unspecified SNOMED Code(s): 047101009, 672056146 ICD Code: D72.829 - ELEVATED WHITE BLOOD CELL COUNT, UNSPECIFIED Status: Acute Current Visit: Yes Problem Details: Unknown source, will get CT angio chest and abd/pelvis. UA negative. COVID, influenza, Strep negative. Blood culture pending. Qualifiers: Leukocytosis type: unspecified Qualified Code(s): D72.829 - Elevated white blood cell count, unspecified (2) Elevated d-dimer SNOMED Code(s): 917058339 ICD Code: R79.89 - OTHER SPECIFIED ABNORMAL FINDINGS OF BLOOD CHEMISTRY Status: Acute Current Visit: Yes Problem Details: 1.39, will get CT angio chest to rule out PE especially in light of Coffee ground emesis. (3) Epigastric abdominal pain SNOMED Code(s): 25900095 ICD Code: R10.13 - EPIGASTRIC PAIN Status: Acute Current Visit: Yes Problem Details: CT abdomen/pelvis w contrast. (4) Coffee ground emesis SNOMED Code(s): 97269365 ICD Code: K92.0 - HEMATEMESIS Status: Acute Current Visit: Yes Problem Details: Spoke with Dr Aj, surgeon application development specialist, stable hemoglobin 13.8 and 12.0 after 2 liters in ER. She would not need emergent EGD today. She is a [place] patient so contacted Dr Vergara who would see her tomorrow. She does have elevated D Dimer so if she has PE would not be able to give anticoagulation would need IVC filter. Pantoprazole 40 mg IV bid. Zofran 4 mg IV q4h prn. Clear liquids, npo after midnight. (5) Hypertension SNOMED Code(s): 48817404 ICD Code: I10 - ESSENTIAL (PRIMARY) HYPERTENSION Status: Chronic Current Visit: Yes (6) Heartburn SNOMED Code(s): 65416988 ICD Code: R12 - HEARTBURN Status: Chronic Current Visit: Yes (7) S/P hysterectomy with oophorectomy SNOMED Code(s): 930198376 ICD Code: Z90.710 - ACQUIRED ABSENCE OF BOTH CERVIX AND UTERUS; Z90.721 - ACQUIRED ABSENCE OF OVARIES, UNILATERAL Status: Chronic Current Visit: Yes (8) Urinary incontinence SNOMED Code(s): 575851954 ICD Code: R32 - UNSPECIFIED URINARY INCONTINENCE Status: Chronic Current Visit: Yes Problem Details: after she had hysterectomy, bladder was nicked, controlled with Ditropan. Qualifiers: Urinary Incontinence type: unspecified incontinence Qualified Code(s): R32 - Unspecified urinary incontinence Problem List Initiated/Reviewed/Updated: Yes Orders Last 24hrs: Active Orders 24 hr Category Date Time Status Patient Status [ADT] Routine ADT 10/28/19 14:32 Active Antiembolic Devices [RC] .Routine Care 10/28/19 14:32 Active Notify Provider Consults [RC] ASDIRECTED Care 10/28/19 14:37 Active Oxygen Therapy [RC] PRN Care 10/28/19 14:32 Active Up ad Clarissa [RC] ASDIRECTED Care 10/28/19 14:32 Active VTE/DVT Education [RC] Per Unit Routine Care 10/28/19 14:32 Active Vital Signs [RC] Q4H Care 10/28/19 14:32 Active Consult to Physician [CONS] Routine Cons 10/28/19 14:36 Ordered Clear Liquid Diet [DIET] Diet 10/28/19 Dinner Active Abdomen Pelvis w Cont [CT] Routine Exams 10/28/19 14:30 Ordered Ang Chest [CT] Routine Exams 10/28/19 14:30 Ordered Chest 1V Frontal [CR] Stat Exams 10/28/19 09:44 Taken CBC W/O DIFF,HEMOGRAM [HEME] Routine Lab 10/29/19 06:00 Ordered COMPREHENSIVE METABOLIC PN,CMP [CHEM] Routine Lab 10/29/19 06:00 Ordered CULTURE BLOOD [BC] Urgent Lab 10/28/19 09:30 Received CULTURE BLOOD [BC] Urgent Lab 10/28/19 09:35 Results CULTURE STREP A CONFIRMATION [] Stat Lab 10/28/19 10:26 Results STREP SCRN A RAPID W CULT CONF [] Stat Lab 10/28/19 10:26 Results Lactated Ringers [Ringers, Lactated] 1,000 ml Med 10/28/19 14:45 Active IV ASDIRECTED Ondansetron [Zofran] Med 10/28/19 14:35 Active 4 mg IVPUSH Q6H PRN Sodium Chloride 0.9% [Normal Saline] 1,000 ml Med 10/28/19 09:45 Active IV ASDIRECTED Sodium Chloride 0.9% [Saline Flush] Med 10/28/19 09:46 Active 10 ml FLUSH ASDIRECTED PRN Antiembolic Hose [OM.PC] Per Unit Routine Ot 10/28/19 14:33 Ordered Blood Culture x2 Reflex Set [OM.PC] Urgent Oth 10/28/19 09:46 Ordered Isolation [COMM] Routine Oth 10/28/19 11:08 Ordered Peripheral IV Insertion Adult [OM.PC] Routine Oth 10/28/19 09:46 Ordered Resuscitation Status Routine Resus Stat 10/28/19 14:32 Ordered Medication Orders Sodium Chloride (Normal Saline) 1,000 mls @ 500 mls/hr IV ASDIRECTED [facility] Last Admin: 10/28/19 09:50 Dose: 500 mls/hr Documented by: JASMIN Lactated Ringer's (Ringers, Lactated) 1,000 mls @ 125 mls/hr IV ASDIRECTED [facility] Ondansetron HCl (Zofran) 4 mg IVPUSH Q6H PRN PRN Reason: Nausea/Vomiting Sodium Chloride (Saline Flush) 10 ml FLUSH ASDIRECTED PRN PRN Reason: Keep Vein Open Last Admin: 10/28/19 09:50 Dose: 10 ml Documented by: JASMIN - Mortality Measure Prognosis:: Good
[2019-10-28] MEDS ORDERED: Acetaminophen 650 MG Supp RECTAL PRN (15:16)
[2019-10-28] MEDS ORDERED: Diazepam 5 MG Tab PO ONE (16:27)
[2019-10-28] MEDS ORDERED: Iopamidol 755 Mg/ML 100 ML Bottle IV ONE (17:05)
[2019-10-28] MEDS: Pantoprazole 40 MG Vial IVPUSH SCH (22:34)
[2019-10-29] MEDS: Lactated Ringers 1,000 ML IV SCH ×3 (06:23→20:41)
--- NOTE | 2019-10-29 07:53 | PCM.CONS ---
H&P History of Present Illness - General Date of Service: 10/29/19 Admit Problem/Dx: Admission Diagnosis/Problem Admission Diagnosis/Problem Leukocytosis - History of Present Illness Initial Comments - Free Text/Narative: 54 yo wf who presented yesterday with a hx of some fever, chills, non productive cough. She apparently had exposure to a Covid+ person. Her covid test was negative. while in the ed had an episode of hematemesis. has a hx of heartburn. CT scan yesterday thickened distal esophagus suggestive of esophagitis. She has remained afebrile, her WBC is now normal. Throat, bilateral ears, generalized Pain Score (Numeric/FACES): 10 - Related Data Allergies/Adverse Reactions: Allergies Allergy/AdvReac Type Severity Reaction Status Date / Time bee venom protein (honey bee) Allergy Swelling Verified 10/28/19 09:31 Penicillins Allergy Bronchospas Verified 10/28/19 09:31 ms wool Allergy Rash Verified 10/28/19 09:31 Home Medications: Home Meds EPINEPHrine [Epinephrine] 0.3 mg IM ASDIRECTED 05/29/17 [History] Venlafaxine HCl [Venlafaxine ER] 150 mg PO DAILY 05/29/17 [History] atorvaSTATin [Lipitor] 10 mg PO DAILY 05/29/17 [History] valACYclovir [Valtrex] 1,000 mg PO DAILY 05/29/17 [History] Acetaminophen [Tylenol Extra Strength] 500 - 1,000 mg PO Q4HR PRN 08/03/17 [Hist ory] Naproxen Sodium [Aleve] 220 mg PO BID PRN 08/03/17 [History] SUMAtriptan succinate [Imitrex] 50 mg PO ASDIRECTED PRN 08/03/17 [History] lisinopriL [Prinivil] 40 mg PO DAILY 08/03/17 [History] Omeprazole 40 mg PO ACBREAKFAST 10/28/19 [History] Oxybutynin [Oxybutynin ER] 15 mg PO DAILY 10/28/19 [History] Past Medical History HEENT History: Reports: Impaired Vision Cardiovascular History: Reports: High Cholesterol, Hypertension Respiratory History: Reports: None Gastrointestinal History: Reports: GERD Genitourinary History: Reports: Urinary Incontinence Other Genitourinary History: nicked bladder during hyst & had problems with incont since-- is on Ditropan for same. [employer] History: Reports: Other OB/BYN History: [id number],. EPTOPIC . PARA III AB III Musculoskeletal History: Reports: None Neurological History: Reports: Migraines Psychiatric History: Reports: Depression Endocrine/Metabolic History: Reports: Obesity/BMI 30+, Other (See Below) Hematologic History: Reports: Anemia Immunologic History: Reports: None Oncologic (Cancer) History: Reports: None Dermatologic History: Reports: None - Infectious Disease History Infectious Disease History: Reports: Chicken Pox - Past Surgical History Head Surgeries/Procedures: Reports: None HEENT Surgical History: Reports: Adenoidectomy, Oral Surgery, Tonsillectomy GI Surgical History: Reports: None Female Surgical History: Reports: Section, Hysterectomy, Salpingo- Oophorectomy Social & Family History - Family History Family Medical History: Noncontributory HEENT: Reports: None GI: Reports: None - Tobacco Use Smoking Status *Q: Never Smoker Used Tobacco, but Quit: Yes Month/Year Tobacco Last Used: 10 - Caffeine Use Caffeine Use: Reports: Coffee, Energy Drinks, Soda - Alcohol Use Days Per Week of Alcohol Use: 7 Number of Drinks Per Day: 2 Total Drinks Per Week: 14 - Recreational Drug Use Recreational Drug Use: No H&P Review of Systems - Review of Systems: Review Of Systems: See Below General: Reports: Fever HEENT: Reports: No Symptoms Pulmonary: Reports: Cough Cardiovascular: Reports: No Symptoms Gastrointestinal: Reports: Abdominal Pain Genitourinary: Reports: Incontinence Exam - Exam Exam: See Below - Vital Signs Vital Signs: Last Vital Signs Temp 98.4 F 10/29/19 05:58 Pulse 73 10/29/19 05:58 Resp 16 10/29/19 05:58 BP 104/50 L 10/29/19 05:58 Pulse Ox 95 10/29/19 05:58 Weight: 76.204 kg - Exam General: Alert, Oriented, Cooperative Lungs: Clear to Auscultation, Normal Respiratory Effort Cardiovascular: Regular Rate, Regular Rhythm GI/Abdominal Exam: Normal Bowel Sounds, Soft, Non-Tender - Patient Data Lab Results Last 24 hrs: Laboratory Results - last 24 hr 10/28/19 10/28/19 10/28/19 Range/Units 09:30 09:30 09:30 WBC 15.7 H (4.5-12.0) X10-3/uL RBC 4.75 (3.23-5.20) x10(6)uL Hgb 13.8 (11.5-15.5) g/dL Hct 42.9 (30.0-51.3) % MCV 90.3 (80-96) fL MCH 29.1 (27.7-33.6) pg MCHC 32.2 (32.2-35.4) g/dL RDW 15.2 (11.5-15.5) % Plt Count 212 (125-369) X10(3)uL MPV 8.4 (7.4-10.4) fL Neut % (Auto) (46-82) % Lymph % (Auto) (13-37) % [place] % (Auto) (4-12) % Eos % (Auto) (1.0-5.0) % Baso % (Auto) (0-2) % Neut # (Auto) (1.6-8.3) # Lymph # (Auto) (0.6-5.0) # [place] # (Auto) (0.0-1.3) # Eos # (Auto) (0.0-0.8) # Baso # (Auto) (0.0-0.2) # Add Manual Diff Yes Neutrophils % (Manual) 86 H (46-82) % Band Neutrophils % 5 (0-6) % Lymphocytes % (Manual) 5 L (13-37) % Monocytes % (Manual) 3 L (4-12) % Metamyelocytes % 1 H (0-0) % D-Dimer, Quantitative 1.39 H (0.0-0.59) mg/LFEU Sodium 133 L (135-145) mmol/L Potassium 4.4 (3.5-5.3) mmol/L Chloride 96 L (100-110) mmol/L Carbon Dioxide 29 (21-32) mmol/L BUN 10 (7-18) mg/dL Creatinine 0.9 (0.55-1.02) mg/dL Est Cr Clr Drug Dosing TNP Estimated GFR (MDRD) > 60 (>60) BUN/Creatinine Ratio 11.1 (9-20) Glucose 124 H (80-116) mg/dL Lactic Acid (0.4-2.0) mmol/L Calcium 8.3 L (8.6-10.2) mg/dL Total Bilirubin 0.5 (0.1-1.3) mg/dL AST 30 H (5-25) IU/L ALT 35 (12-36) U/L Alkaline Phosphatase 50 L (56-112) IU/L C-Reactive Protein (0.5-0.9) mg/dL Total Protein 6.1 (6.0-8.0) g/dL Albumin 3.2 L (3.5-5.2) g/dL Globulin 2.9 g/dL Albumin/Globulin Ratio 1.1 Lipase (73-393) U/L Urine Color (YELLOW) Urine Appearance (CLEAR) Urine pH (5.0-6.5) Ur Specific [place] (1.010-1.025) Urine Protein (NEGATIVE) mg/dL Urine Glucose (UA) (NORMAL) mg/dL Urine Ketones (NEGATIVE) mg/dL Urine Occult Blood (NEGATIVE) Urine Nitrite (NEGATIVE) Urine Bilirubin (NEGATIVE) Urine Urobilinogen (NEGATIVE) mg/dL Ur Leukocyte Esterase (NEGATIVE) Urine RBC (0-5) Urine WBC (0-5) Ur Squamous Epith Cells (NS,R,O) Urine Bacteria (NS) SARS-CoV-2 RNA ([facility]) (NEGATIVE) 10/28/19 10/28/19 10/28/19 Range/Units 09:30 09:30 10:00 WBC (4.5-12.0) X10-3/uL RBC (3.23-5.20) x10(6)uL Hgb (11.5-15.5) g/dL Hct (30.0-51.3) % MCV (80-96) fL MCH (27.7-33.6) pg MCHC (32.2-35.4) g/dL RDW (11.5-15.5) % Plt Count (125-369) X10(3)uL MPV (7.4-10.4) fL Neut % (Auto) (46-82) % Lymph % (Auto) (13-37) % [place] % (Auto) (4-12) % Eos % (Auto) (1.0-5.0) % Baso % (Auto) (0-2) % Neut # (Auto) (1.6-8.3) # Lymph # (Auto) (0.6-5.0) # [place] # (Auto) (0.0-1.3) # Eos # (Auto) (0.0-0.8) # Baso # (Auto) (0.0-0.2) # Add Manual Diff Neutrophils % (Manual) (46-82) % Band Neutrophils % (0-6) % Lymphocytes % (Manual) (13-37) % Monocytes % (Manual) (4-12) % Metamyelocytes % (0-0) % D-Dimer, Quantitative (0.0-0.59) mg/LFEU Sodium (135-145) mmol/L Potassium (3.5-5.3) mmol/L Chloride (100-110) mmol/L Carbon Dioxide (21-32) mmol/L BUN (7-18) mg/dL Creatinine (0.55-1.02) mg/dL Est Cr Clr Drug Dosing Estimated GFR (MDRD) (>60) BUN/Creatinine Ratio (9-20) Glucose (80-116) mg/dL Lactic Acid 1.9 (0.4-2.0) mmol/L Calcium (8.6-10.2) mg/dL Total Bilirubin (0.1-1.3) mg/dL AST (5-25) IU/L ALT (12-36) U/L Alkaline Phosphatase (56-112) IU/L C-Reactive Protein 6.5 H* (0.5-0.9) mg/dL Total Protein (6.0-8.0) g/dL Albumin (3.5-5.2) g/dL Globulin g/dL Albumin/Globulin Ratio Lipase (73-393) U/L Urine Color (YELLOW) Urine Appearance (CLEAR) Urine pH (5.0-6.5) Ur Specific [place] (1.010-1.025) Urine Protein (NEGATIVE) mg/dL Urine Glucose (UA) (NORMAL) mg/dL Urine Ketones (NEGATIVE) mg/dL Urine Occult Blood (NEGATIVE) Urine Nitrite (NEGATIVE) Urine Bilirubin (NEGATIVE) Urine Urobilinogen (NEGATIVE) mg/dL Ur Leukocyte Esterase (NEGATIVE) Urine RBC (0-5) Urine WBC (0-5) Ur Squamous Epith Cells (NS,R,O) Urine Bacteria (NS) SARS-CoV-2 RNA ([facility]) Negative (NEGATIVE) 10/28/19 10/28/19 10/28/19 Range/Units 10:05 12:50 13:25 WBC 14.5 H (4.5-12.0) X10-3/uL RBC 4.08 (3.23-5.20) x10(6)uL Hgb 12.0 (11.5-15.5) g/dL Hct 36.3 (30.0-51.3) % MCV 89.1 (80-96) fL MCH 29.5 (27.7-33.6) pg MCHC 33.1 (32.2-35.4) g/dL RDW 14.8 (11.5-15.5) % Plt Count 196 (125-369) X10(3)uL MPV 8.4 (7.4-10.4) fL Neut % (Auto) 89.3 H (46-82) % Lymph % (Auto) 7.7 L (13-37) % [place] % (Auto) 2.1 L (4-12) % Eos % (Auto) 0 L (1.0-5.0) % Baso % (Auto) 1 (0-2) % Neut # (Auto) 13.0 H (1.6-8.3) # Lymph # (Auto) 1.1 (0.6-5.0) # [place] # (Auto) 0.3 (0.0-1.3) # Eos # (Auto) 0.0 (0.0-0.8) # Baso # (Auto) 0.1 (0.0-0.2) # Add Manual Diff Neutrophils % (Manual) (46-82) % Band Neutrophils % (0-6) % Lymphocytes % (Manual) (13-37) % Monocytes % (Manual) (4-12) % Metamyelocytes % (0-0) % D-Dimer, Quantitative (0.0-0.59) mg/LFEU Sodium (135-145) mmol/L Potassium (3.5-5.3) mmol/L Chloride (100-110) mmol/L Carbon Dioxide (21-32) mmol/L BUN (7-18) mg/dL Creatinine (0.55-1.02) mg/dL Est Cr Clr Drug Dosing Estimated GFR (MDRD) (>60) BUN/Creatinine Ratio (9-20) Glucose (80-116) mg/dL Lactic Acid (0.4-2.0) mmol/L Calcium (8.6-10.2) mg/dL Total Bilirubin (0.1-1.3) mg/dL AST (5-25) IU/L ALT (12-36) U/L Alkaline Phosphatase (56-112) IU/L C-Reactive Protein (0.5-0.9) mg/dL Total Protein (6.0-8.0) g/dL Albumin (3.5-5.2) g/dL Globulin g/dL Albumin/Globulin Ratio Lipase 60 L (73-393) U/L Urine Color Yellow (YELLOW) Urine Appearance Clear (CLEAR) Urine pH 8.0 H (5.0-6.5) Ur Specific [place] 1.010 (1.010-1.025) Urine Protein Negative (NEGATIVE) mg/dL Urine Glucose (UA) Normal (NORMAL) mg/dL Urine Ketones Negative (NEGATIVE) mg/dL Urine Occult Blood Negative (NEGATIVE) Urine Nitrite Negative (NEGATIVE) Urine Bilirubin Negative (NEGATIVE) Urine Urobilinogen Normal (NEGATIVE) mg/dL Ur Leukocyte Esterase Negative (NEGATIVE) Urine RBC 0-5 (0-5) Urine WBC 0-5 (0-5) Ur Squamous Epith Cells Occasional (NS,R,O) Urine Bacteria Rare H (NS) SARS-CoV-2 RNA ([facility]) (NEGATIVE) 10/28/19 10/29/19 10/29/19 Range/Units 20:10 06:15 06:15 WBC 5.3 (4.5-12.0) X10-3/uL RBC 3.85 (3.23-5.20) x10(6)uL Hgb 11.1 L 11.4 L (11.5-15.5) g/dL Hct 33.7 34.6 (30.0-51.3) % MCV 89.9 (80-96) fL MCH 29.6 (27.7-33.6) pg MCHC 33.0 (32.2-35.4) g/dL RDW 15.0 (11.5-15.5) % Plt Count 154 (125-369) X10(3)uL MPV (7.4-10.4) fL Neut % (Auto) (46-82) % Lymph % (Auto) (13-37) % [place] % (Auto) (4-12) % Eos % (Auto) (1.0-5.0) % Baso % (Auto) (0-2) % Neut # (Auto) (1.6-8.3) # Lymph # (Auto) (0.6-5.0) # [place] # (Auto) (0.0-1.3) # Eos # (Auto) (0.0-0.8) # Baso # (Auto) (0.0-0.2) # Add Manual Diff Neutrophils % (Manual) (46-82) % Band Neutrophils % (0-6) % Lymphocytes % (Manual) (13-37) % Monocytes % (Manual) (4-12) % Metamyelocytes % (0-0) % D-Dimer, Quantitative (0.0-0.59) mg/LFEU Sodium 145 D (135-145) mmol/L Potassium 4.0 (3.5-5.3) mmol/L Chloride 108 D (100-110) mmol/L Carbon Dioxide 31 (21-32) mmol/L BUN 10 (7-18) mg/dL Creatinine 0.9 (0.55-1.02) mg/dL Est Cr Clr Drug Dosing 51.33 Estimated GFR (MDRD) > 60 (>60) BUN/Creatinine Ratio 11.1 (9-20) Glucose 103 (80-116) mg/dL Lactic Acid (0.4-2.0) mmol/L Calcium 8.2 L (8.6-10.2) mg/dL Total Bilirubin 0.6 (0.1-1.3) mg/dL AST 21 D (5-25) IU/L ALT 26 D (12-36) U/L Alkaline Phosphatase 40 L (56-112) IU/L C-Reactive Protein (0.5-0.9) mg/dL Total Protein 5.1 L (6.0-8.0) g/dL Albumin 2.5 L (3.5-5.2) g/dL Globulin 2.6 g/dL Albumin/Globulin Ratio 1.0 Lipase (73-393) U/L Urine Color (YELLOW) Urine Appearance (CLEAR) Urine pH (5.0-6.5) Ur Specific [place] (1.010-1.025) Urine Protein (NEGATIVE) mg/dL Urine Glucose (UA) (NORMAL) mg/dL Urine Ketones (NEGATIVE) mg/dL Urine Occult Blood (NEGATIVE) Urine Nitrite (NEGATIVE) Urine Bilirubin (NEGATIVE) Urine Urobilinogen (NEGATIVE) mg/dL Ur Leukocyte Esterase (NEGATIVE) Urine RBC (0-5) Urine WBC (0-5) Ur Squamous Epith Cells (NS,R,O) Urine Bacteria (NS) SARS-CoV-2 RNA ([facility]) (NEGATIVE) Result Diagrams: 10/29/19 06:15 10/29/19 06:15 Ghassan Results Last 24 hrs: Microbiology 10/28/19 11:00 Gastric Occult Blood - Final Gastric Fluid 10/28/19 11:08 Influenza Type A Antigen Screen - Final Nasal Aspirate, Unspecified NEGATIVE INFLUENZA A VIRUS AG REFERENCE RANGE: NEGATIVE Influenza Type B Antigen Screen - Final NEGATIVE INFLUENZA B VIRUS AG REFERENCE RANGE: NEGATIVE 10/28/19 10:26 Group A Streptococcus Rapid Screen - Final Throat NEGATIVE STREP A SCREEN REFERENCE RANGE: NEGATIVE 10/28/19 09:35 Anaerobic Blood Culture - Final Blood - Venous - Lab Draw Sepsis Event Note - Evaluation Sepsis Screening Result: No Definite Risk - Focused Exam Vital Signs: Vital Signs Temp Pulse Resp BP Pulse Ox 10/29/19 05:58 98.4 F 73 16 104/50 L 95 10/29/19 01:00 98.8 F 80 16 118/70 99 10/28/19 20:00 98.5 F 80 16 108/58 L 96 *Q Meaningful Use (ADM) - VTE *Q VTE Pharmacological Contraindications *Q: Patient Scheduled Surgery Consult PN Assessment/Plan Procedures: Procedures ANES LWR INTST NDSC NOS (08/04/17) CULTURE SCREEN ONLY (04/19/18) DIAGNOSTIC COLONOSCOPY (08/04/17) EMERGENCY DEPT VISIT (05/29/17) STREP A ASSAY W/OPTIC (04/19/18) (1) Esophagitis SNOMED Code(s): 88136327 Code(s): K20.9 - ESOPHAGITIS, UNSPECIFIED Current Visit: Yes (2) Coffee ground emesis SNOMED Code(s): 59506518 Code(s): K92.0 - HEMATEMESIS Current Visit: Yes Comment: 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 She would not need emergent EGD today. She is a [facility] patient so contacted Dr Vergara who would see her tomorrow. She does have elevated D Dimer so if she has PE would not be able to give anticoagulation would need IVC filter. Pantoprazole 40 mg IV bid. Zofran 4 mg IV q4h prn. Clear liquids, npo after midnight. Problem List Initiated/Reviewed/Updated: Yes Plan: for EGD. Procedure and risks explained to the pt to include bleeding, infection, perforation. she expressed understanding and asks us to proceed.
--- NOTE | 2019-10-29 08:48 | PCM.PN ---
- General Info Date of Service: 10/29/19 Subjective Update: Neelam is feeling better this morning. No fevers since ER, no further emesis except in ER, verified that she did not have any emesis at home. States her heartburn gets bad sometimes to point she has reflux stomach contents coming out of her nose. She does use a lot of chemicals at work but does not have coughing today or shortness of breath. CT chest ruled out PE, had some ground glass nodules, questioned hypersensitivity pneumonitis vs infectious cause. No consolidations, or pleural effusions. CT abdomen/pelvis showed moderate hiatal hernia, evidence of some esophagitis, pericholecystic fluid but has no RUQ pain. Influenza and COVID-19 are negative. WBC normal today, IV fluids were given but no antibiotics were started as we did not have source. Hgb is 11.4 this morning, lowest last evening at 11.1, was 13.8 in ER. 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 - Patient Data Vitals - Most Recent: Last Vital Signs Temp 98.4 F 10/29/19 05:58 Pulse 73 10/29/19 05:58 Resp 16 10/29/19 05:58 BP 104/50 L 10/29/19 05:58 Pulse Ox 95 10/29/19 05:58 Weight - Most Recent: 168 lb I&O - Last 24 Hours: Intake & Output 10/28/19 10/29/19 10/29/19 22:59 06:59 14:59 Intake Total 1025 Balance 1025 Lab Results Last 24 Hours: Laboratory Results - last 24 hr 10/28/19 10/28/19 10/28/19 Range/Units 09:30 09:30 09:30 WBC 15.7 H (4.5-12.0) X10-3/uL RBC 4.75 (3.23-5.20) x10(6)uL Hgb 13.8 (11.5-15.5) g/dL Hct 42.9 (30.0-51.3) % MCV 90.3 (80-96) fL MCH 29.1 (27.7-33.6) pg MCHC 32.2 (32.2-35.4) g/dL RDW 15.2 (11.5-15.5) % Plt Count 212 (125-369) X10(3)uL MPV 8.4 (7.4-10.4) fL Neut % (Auto) (46-82) % Lymph % (Auto) (13-37) % [place] % (Auto) (4-12) % Eos % (Auto) (1.0-5.0) % Baso % (Auto) (0-2) % Neut # (Auto) (1.6-8.3) # Lymph # (Auto) (0.6-5.0) # Liberty # (Auto) (0.0-1.3) # Eos # (Auto) (0.0-0.8) # Baso # (Auto) (0.0-0.2) # Add Manual Diff Yes Neutrophils % (Manual) 86 H (46-82) % Band Neutrophils % 5 (0-6) % Lymphocytes % (Manual) 5 L (13-37) % Monocytes % (Manual) 3 L (4-12) % Metamyelocytes % 1 H (0-0) % D-Dimer, Quantitative 1.39 H (0.0-0.59) mg/LFEU Sodium 133 L (135-145) mmol/L Potassium 4.4 (3.5-5.3) mmol/L Chloride 96 L (100-110) mmol/L Carbon Dioxide 29 (21-32) mmol/L BUN 10 (7-18) mg/dL Creatinine 0.9 (0.55-1.02) mg/dL Est Cr Clr Drug Dosing TNP Estimated GFR (MDRD) > 60 (>60) BUN/Creatinine Ratio 11.1 (9-20) Glucose 124 H (80-116) mg/dL Lactic Acid (0.4-2.0) mmol/L Calcium 8.3 L (8.6-10.2) mg/dL Total Bilirubin 0.5 (0.1-1.3) mg/dL AST 30 H (5-25) IU/L ALT 35 (12-36) U/L Alkaline Phosphatase 50 L (56-112) IU/L C-Reactive Protein (0.5-0.9) mg/dL Total Protein 6.1 (6.0-8.0) g/dL Albumin 3.2 L (3.5-5.2) g/dL Globulin 2.9 g/dL Albumin/Globulin Ratio 1.1 Lipase (73-393) U/L Urine Color (YELLOW) Urine Appearance (CLEAR) Urine pH (5.0-6.5) Ur Specific [place] (1.010-1.025) Urine Protein (NEGATIVE) mg/dL Urine Glucose (UA) (NORMAL) mg/dL Urine Ketones (NEGATIVE) mg/dL Urine Occult Blood (NEGATIVE) Urine Nitrite (NEGATIVE) Urine Bilirubin (NEGATIVE) Urine Urobilinogen (NEGATIVE) mg/dL Ur Leukocyte Esterase (NEGATIVE) Urine RBC (0-5) Urine WBC (0-5) Ur Squamous Epith Cells (NS,R,O) Urine Bacteria (NS) SARS-CoV-2 RNA (LAWSON) (NEGATIVE) 10/28/19 10/28/19 10/28/19 Range/Units 09:30 09:30 10:00 WBC (4.5-12.0) X10-3/uL RBC (3.23-5.20) x10(6)uL Hgb (11.5-15.5) g/dL Hct (30.0-51.3) % MCV (80-96) fL MCH (27.7-33.6) pg MCHC (32.2-35.4) g/dL RDW (11.5-15.5) % Plt Count (125-369) X10(3)uL MPV (7.4-10.4) fL Neut % (Auto) (46-82) % Lymph % (Auto) (13-37) % Liberty % (Auto) (4-12) % Eos % (Auto) (1.0-5.0) % Baso % (Auto) (0-2) % Neut # (Auto) (1.6-8.3) # Lymph # (Auto) (0.6-5.0) # Liberty # (Auto) (0.0-1.3) # Eos # (Auto) (0.0-0.8) # Baso # (Auto) (0.0-0.2) # Add Manual Diff Neutrophils % (Manual) (46-82) % Band Neutrophils % (0-6) % Lymphocytes % (Manual) (13-37) % Monocytes % (Manual) (4-12) % Metamyelocytes % (0-0) % D-Dimer, Quantitative (0.0-0.59) mg/LFEU Sodium (135-145) mmol/L Potassium (3.5-5.3) mmol/L Chloride (100-110) mmol/L Carbon Dioxide (21-32) mmol/L BUN (7-18) mg/dL Creatinine (0.55-1.02) mg/dL Est Cr Clr Drug Dosing Estimated GFR (MDRD) (>60) BUN/Creatinine Ratio (9-20) Glucose (80-116) mg/dL Lactic Acid 1.9 (0.4-2.0) mmol/L Calcium (8.6-10.2) mg/dL Total Bilirubin (0.1-1.3) mg/dL AST (5-25) IU/L ALT (12-36) U/L Alkaline Phosphatase (56-112) IU/L C-Reactive Protein 6.5 H* (0.5-0.9) mg/dL Total Protein (6.0-8.0) g/dL Albumin (3.5-5.2) g/dL Globulin g/dL Albumin/Globulin Ratio Lipase (73-393) U/L Urine Color (YELLOW) Urine Appearance (CLEAR) Urine pH (5.0-6.5) Ur Specific [place] (1.010-1.025) Urine Protein (NEGATIVE) mg/dL Urine Glucose (UA) (NORMAL) mg/dL Urine Ketones (NEGATIVE) mg/dL Urine Occult Blood (NEGATIVE) Urine Nitrite (NEGATIVE) Urine Bilirubin (NEGATIVE) Urine Urobilinogen (NEGATIVE) mg/dL Ur Leukocyte Esterase (NEGATIVE) Urine RBC (0-5) Urine WBC (0-5) Ur Squamous Epith Cells (NS,R,O) Urine Bacteria (NS) SARS-CoV-2 RNA (LAWSON) Negative (NEGATIVE) 10/28/19 10/28/19 10/28/19 Range/Units 10:05 12:50 13:25 WBC 14.5 H (4.5-12.0) X10-3/uL RBC 4.08 (3.23-5.20) x10(6)uL Hgb 12.0 (11.5-15.5) g/dL Hct 36.3 (30.0-51.3) % MCV 89.1 (80-96) fL MCH 29.5 (27.7-33.6) pg MCHC 33.1 (32.2-35.4) g/dL RDW 14.8 (11.5-15.5) % Plt Count 196 (125-369) X10(3)uL MPV 8.4 (7.4-10.4) fL Neut % (Auto) 89.3 H (46-82) % Lymph % (Auto) 7.7 L (13-37) % Liberty % (Auto) 2.1 L (4-12) % Eos % (Auto) 0 L (1.0-5.0) % Baso % (Auto) 1 (0-2) % Neut # (Auto) 13.0 H (1.6-8.3) # Lymph # (Auto) 1.1 (0.6-5.0) # Liberty # (Auto) 0.3 (0.0-1.3) # Eos # (Auto) 0.0 (0.0-0.8) # Baso # (Auto) 0.1 (0.0-0.2) # Add Manual Diff Neutrophils % (Manual) (46-82) % Band Neutrophils % (0-6) % Lymphocytes % (Manual) (13-37) % Monocytes % (Manual) (4-12) % Metamyelocytes % (0-0) % D-Dimer, Quantitative (0.0-0.59) mg/LFEU Sodium (135-145) mmol/L Potassium (3.5-5.3) mmol/L Chloride (100-110) mmol/L Carbon Dioxide (21-32) mmol/L BUN (7-18) mg/dL Creatinine (0.55-1.02) mg/dL Est Cr Clr Drug Dosing Estimated GFR (MDRD) (>60) BUN/Creatinine Ratio (9-20) Glucose (80-116) mg/dL Lactic Acid (0.4-2.0) mmol/L Calcium (8.6-10.2) mg/dL Total Bilirubin (0.1-1.3) mg/dL AST (5-25) IU/L ALT (12-36) U/L Alkaline Phosphatase (56-112) IU/L C-Reactive Protein (0.5-0.9) mg/dL Total Protein (6.0-8.0) g/dL Albumin (3.5-5.2) g/dL Globulin g/dL Albumin/Globulin Ratio Lipase 60 L (73-393) U/L Urine Color Yellow (YELLOW) Urine Appearance Clear (CLEAR) Urine pH 8.0 H (5.0-6.5) Ur Specific [place] 1.010 (1.010-1.025) Urine Protein Negative (NEGATIVE) mg/dL Urine Glucose (UA) Normal (NORMAL) mg/dL Urine Ketones Negative (NEGATIVE) mg/dL Urine Occult Blood Negative (NEGATIVE) Urine Nitrite Negative (NEGATIVE) Urine Bilirubin Negative (NEGATIVE) Urine Urobilinogen Normal (NEGATIVE) mg/dL Ur Leukocyte Esterase Negative (NEGATIVE) Urine RBC 0-5 (0-5) Urine WBC 0-5 (0-5) Ur Squamous Epith Cells Occasional (NS,R,O) Urine Bacteria Rare H (NS) SARS-CoV-2 RNA (LAWSON) (NEGATIVE) 10/28/19 10/29/19 10/29/19 Range/Units 20:10 06:15 06:15 WBC 5.3 (4.5-12.0) X10-3/uL RBC 3.85 (3.23-5.20) x10(6)uL Hgb 11.1 L 11.4 L (11.5-15.5) g/dL Hct 33.7 34.6 (30.0-51.3) % MCV 89.9 (80-96) fL MCH 29.6 (27.7-33.6) pg MCHC 33.0 (32.2-35.4) g/dL RDW 15.0 (11.5-15.5) % Plt Count 154 (125-369) X10(3)uL MPV (7.4-10.4) fL Neut % (Auto) (46-82) % Lymph % (Auto) (13-37) % [place] % (Auto) (4-12) % Eos % (Auto) (1.0-5.0) % Baso % (Auto) (0-2) % Neut # (Auto) (1.6-8.3) # Lymph # (Auto) (0.6-5.0) # Liberty # (Auto) (0.0-1.3) # Eos # (Auto) (0.0-0.8) # Baso # (Auto) (0.0-0.2) # Add Manual Diff Neutrophils % (Manual) (46-82) % Band Neutrophils % (0-6) % Lymphocytes % (Manual) (13-37) % Monocytes % (Manual) (4-12) % Metamyelocytes % (0-0) % D-Dimer, Quantitative (0.0-0.59) mg/LFEU Sodium 145 D (135-145) mmol/L Potassium 4.0 (3.5-5.3) mmol/L Chloride 108 D (100-110) mmol/L Carbon Dioxide 31 (21-32) mmol/L BUN 10 (7-18) mg/dL Creatinine 0.9 (0.55-1.02) mg/dL Est Cr Clr Drug Dosing 51.33 Estimated GFR (MDRD) > 60 (>60) BUN/Creatinine Ratio 11.1 (9-20) Glucose 103 (80-116) mg/dL Lactic Acid (0.4-2.0) mmol/L Calcium 8.2 L (8.6-10.2) mg/dL Total Bilirubin 0.6 (0.1-1.3) mg/dL AST 21 D (5-25) IU/L ALT 26 D (12-36) U/L Alkaline Phosphatase 40 L (56-112) IU/L C-Reactive Protein (0.5-0.9) mg/dL Total Protein 5.1 L (6.0-8.0) g/dL Albumin 2.5 L (3.5-5.2) g/dL Globulin 2.6 g/dL Albumin/Globulin Ratio 1.0 Lipase (73-393) U/L Urine Color (YELLOW) Urine Appearance (CLEAR) Urine pH (5.0-6.5) Ur Specific [place] (1.010-1.025) Urine Protein (NEGATIVE) mg/dL Urine Glucose (UA) (NORMAL) mg/dL Urine Ketones (NEGATIVE) mg/dL Urine Occult Blood (NEGATIVE) Urine Nitrite (NEGATIVE) Urine Bilirubin (NEGATIVE) Urine Urobilinogen (NEGATIVE) mg/dL Ur Leukocyte Esterase (NEGATIVE) Urine RBC (0-5) Urine WBC (0-5) Ur Squamous Epith Cells (NS,R,O) Urine Bacteria (NS) SARS-CoV-2 RNA (LAWSON) (NEGATIVE) Ghassan Results Last 24 Hours: Microbiology 10/28/19 11:00 Gastric Occult Blood - Final Gastric Fluid 10/28/19 11:08 Influenza Type A Antigen Screen - Final Nasal Aspirate, Unspecified NEGATIVE INFLUENZA A VIRUS AG REFERENCE RANGE: NEGATIVE Influenza Type B Antigen Screen - Final NEGATIVE INFLUENZA B VIRUS AG REFERENCE RANGE: NEGATIVE 10/28/19 10:26 Group A Streptococcus Rapid Screen - Final Throat NEGATIVE STREP A SCREEN REFERENCE RANGE: NEGATIVE 10/28/19 09:35 Anaerobic Blood Culture - Final Blood - Venous - Lab Draw Med Orders - Current: Current Medications Acetaminophen (Tylenol) 650 mg RECTAL Q4H PRN PRN Reason: Fever Lactated Ringer's (Ringers, Lactated) 1,000 mls @ 125 mls/hr IV ASDIRECTED [facility] Last Admin: 10/29/19 06:23 Dose: 125 mls/hr Documented by: Ondansetron HCl (Zofran) 4 mg IVPUSH Q6H PRN PRN Reason: Nausea/Vomiting Pantoprazole Sodium (Protonix Iv) 40 mg IVPUSH Q24H [facility] Last Admin: 10/28/19 22:34 Dose: 40 mg Documented by: Sodium Chloride (Saline Flush) 10 ml FLUSH ASDIRECTED PRN PRN Reason: Keep Vein Open Last Admin: 10/28/19 09:50 Dose: 10 ml Documented by: Discontinued Medications Acetaminophen (Tylenol) 650 mg PO NOW ONE Stop: 10/28/19 09:45 Last Admin: 10/28/19 09:35 Dose: 650 mg Documented by: Acetaminophen (Tylenol) 650 mg RECTAL NOW ONE Stop: 10/28/19 09:45 Last Admin: 10/28/19 10:17 Dose: 650 mg Documented by: Diazepam (Valium.) 5 mg PO ONETIME ONE Stop: 10/28/19 16:28 Last Admin: 10/28/19 16:56 Dose: 5 mg Documented by: Sodium Chloride (Normal Saline) 1,000 mls @ 500 mls/hr IV ASDIRECTED [facility] Last Admin: 10/28/19 09:50 Dose: 500 mls/hr Documented by: Dextrose/Lactated Ringer's (Dextrose 5%-Lactated Ringers) 1,000 mls @ 150 mls/hr IV ASDIRECTED [facility] Lactated Ringer's (Ringers, Lactated) 1,000 mls @ 500 mls/hr IV ONETIME ONE Stop: 10/28/19 13:29 Last Admin: 10/28/19 11:35 Dose: 500 mls/hr Documented by: Iopamidol (Isovue-370 (76%)) 100 ml IV ONETIME ONE Stop: 10/28/19 17:06 Last Admin: 10/28/19 17:30 Dose: 90 ml Documented by: Ondansetron HCl (Zofran) 8 mg IVPUSH ONETIME ONE Stop: 10/28/19 09:46 Last Admin: 10/28/19 10:14 Dose: 8 mg Documented by: Pantoprazole Sodium (Protonix Iv) 40 mg IVPUSH ONETIME ONE Stop: 10/28/19 11:09 Last Admin: 10/28/19 13:57 Dose: 40 mg Documented by: Pantoprazole Sodium (Protonix Iv) Confirm Administered Dose 40 mg .ROUTE .STK-MED ONE Stop: 10/28/19 13:55 Last Admin: 10/28/19 13:58 Dose: Not Given Documented by: - Exam General: Alert, Oriented, Cooperative, No Acute Distress Lungs: Clear to Auscultation, Normal Respiratory Effort. No: Crackles, Rales, Wheezing Cardiovascular: Regular Rate, Regular Rhythm GI/Abdominal Exam: Normal Bowel Sounds, Soft, No Distention, Guarding, Tender (epigastric). No: Rigid, Rebound (Female) Exam: Deferred Peripheral Pulses: 2+: Radial (L), Radial (R) Skin: Warm, Dry, Intact Sepsis Event Note - Evaluation Sepsis Screening Result: No Definite Risk - Focused Exam Vital Signs: Vital Signs Temp Pulse Resp BP Pulse Ox 10/29/19 05:58 98.4 F 73 16 104/50 L 95 10/29/19 01:00 98.8 F 80 16 118/70 99 - Problem List & Annotations (1) Leukocytosis, unspecified SNOMED Code(s): 141165284, 646014701 Code(s): D72.829 - ELEVATED WHITE BLOOD CELL COUNT, UNSPECIFIED Status: Resolved Current Visit: Yes Qualifiers: Leukocytosis type: unspecified Qualified Code(s): D72.829 - Elevated white blood cell count, unspecified Annotation/Comment:: 5.3 this morning. Possible hypersensitive pneumonitis on CT vs infectious, no consolidation/ pleural effusions. Respiratory viral panel ordered, this is a send out. (2) Elevated d-dimer SNOMED Code(s): 092288344 Code(s): R79.89 - OTHER SPECIFIED ABNORMAL FINDINGS OF BLOOD CHEMISTRY Status: Resolved Current Visit: Yes Annotation/Comment:: Negative for PE. (3) Epigastric abdominal pain SNOMED Code(s): 42747347 Code(s): R10.13 - EPIGASTRIC PAIN Status: Acute Current Visit: Yes Annotation/Comment:: Hiatal hernia, esophagitis on CT. EGD today with Dr Vergara. (4) Coffee ground emesis SNOMED Code(s): 93416348 Code(s): K92.0 - HEMATEMESIS Status: Acute Current Visit: Yes Annotation/Comment:: Having EGD with Dr Vergara today. Pantoprazole 40 mg IV bid. Zofran 4 mg IV q4h prn. NPO currently. (5) Anemia due to blood loss, acute SNOMED Code(s): 831255638 Code(s): D62 - ACUTE POSTHEMORRHAGIC ANEMIA Status: Acute Current Visit: Yes Annotation/Comment:: stablized at 11.4. Continue to monitor and adjust treatments as necessary. (6) Hypertension SNOMED Code(s): 75878473 Code(s): I10 - ESSENTIAL (PRIMARY) HYPERTENSION Status: Chronic Current Visit: Yes (7) Heartburn SNOMED Code(s): 22378446 Code(s): R12 - HEARTBURN Status: Chronic Current Visit: Yes (8) S/P hysterectomy with oophorectomy SNOMED Code(s): 362043183 Code(s): Z90.710 - ACQUIRED ABSENCE OF BOTH CERVIX AND UTERUS; Z90.721 - ACQUIRED ABSENCE OF OVARIES, UNILATERAL Status: Chronic Current Visit: Yes (9) Urinary incontinence SNOMED Code(s): 536621242 Code(s): R32 - UNSPECIFIED URINARY INCONTINENCE Status: Chronic Current Visit: Yes Qualifiers: Urinary Incontinence type: unspecified incontinence Qualified Code(s): R32 - Unspecified urinary incontinence Annotation/Comment:: after she had hysterectomy, bladder was nicked, controlled with Ditropan. - Problem List Review Problem List Initiated/Reviewed/Updated: Yes - My Orders Last 24 Hours: My Active Orders 10/28/19 14:30 Abdomen Pelvis w Cont [CT] Routine Ang Chest [CT] Routine 10/28/19 14:32 Patient Status [ADT] Routine Antiembolic Devices [RC] .Routine Oxygen Therapy [RC] PRN Up ad Clarissa [RC] ASDIRECTED Vital Signs [RC] 00,04,08,12,16,20 Resuscitation Status Routine 10/28/19 14:33 Antiembolic Hose [OM.PC] Per Unit Routine 10/28/19 14:35 Ondansetron [Zofran] 4 mg IVPUSH Q6H PRN 10/28/19 14:36 Consult to Physician [CONS] Routine 10/28/19 14:45 Lactated Ringers [Ringers, Lactated] 1,000 ml IV ASDIRECTED 10/28/19 15:16 Acetaminophen [Tylenol] 650 mg RECTAL Q4H PRN 10/28/19 Dinner Clear Liquid Diet [DIET] NPO After Midnight [Nothing per Oral After Midnight Diet] [DIET] 10/28/19 21:00 Pantoprazole [ProTONIX IV] 40 mg IVPUSH Q24H - Plan Plan:: 1. EGD today with Dr Vergara. NPO. No further emesis since ER. 2. Ground glass nodules: Respiratory viral panel to make sure not infectious. Could be hypersensitivity pneumonitis secondary to gastric reflux. 3. Anemia: monitor and adjust as needed. 4. Leukocytosis: resolved.
--- NOTE | 2019-10-29 10:14 | CR ---
INDICATION: Tachypnea. Exposed to COVID-19. CHEST, ONE VIEW: An AP upright view of the chest was obtained 11/05/19 - no comparisons. The heart, mediastinum, and bony thorax appear to be unremarkable allowing for the relatively poor inspiration and AP positioning. A definite active infiltrate or effusion was not identified. Multiple healed rib fractures are noted on the right posterolaterally. Evidence of exogenous obesity is noted. IMPRESSION: No acute process. MTDD
--- NOTE | 2019-10-29 11:23 | PCM.OPNOTE ---
- General Post-Op/Procedure Note Date of Surgery/Procedure: 10/29/19 Operative Procedure(s): egd with biopsy Findings: gastritis hiatal hernia intestinal metaplasia distal esophagus Pre Op Diagnosis: hx of hematemasis Post-Op Diagnosis: gastritis. hiatal hernia. intestinal metaplasia distal esophagus Anesthesia Technique: [facility] [place] Primary Surgeon: Mike Vergara Anesthesia Provider: Darby Moura Pathology: stomach and esophagus Condition: Stable Free Text/Narrative:: Intake & Output 10/28/19 10/29/19 10/29/19 22:59 06:59 14:59 Intake Total 1025 Balance 1025 see dictation
[2019-10-29] MEDS ORDERED: Propofol 200 MG/20 ML SDV IV ONE (13:39)
[2019-10-29] MEDS ORDERED: Lidocaine 2% 5 ML SDV IV ONE (13:39)
[2019-10-29] MEDS ORDERED: Midazolam 1 MG/ML 2 ML SDV IV ONE (13:39)
--- NOTE | 2019-10-29 15:35 | OR ---
DATE OF OPERATION: 10/29/2019 SURGEON: Mike Vergara MD PROCEDURE PERFORMED: Esophagogastroduodenoscopy with cold forceps biopsy. PREOPERATIVE DIAGNOSIS: History of hematochezia. POSTOPERATIVE DIAGNOSIS: Gastritis and hiatal hernia and what appears to be intestinal metaplasia. INDICATIONS FOR PROCEDURE: Ms. Jenkins is a 54-year-old white female, who was admitted yesterday in the emergency department. She had an episode of hematemesis. She does have a history of reflux disease. She was offered and accepted an EGD. DESCRIPTION OF PROCEDURE: After an excellent IV sedation was administered, the bite block was inserted. Flexible endoscope was passed without difficulty down the patient's esophagus into the stomach. Stomach was insufflated. Scope was passed through the pylorus to the second portion of duodenum and slowly withdrawn. The following findings were noted: The duodenum was essentially unremarkable. Stomach demonstrated a 5 cm hiatal hernia. Mild erythema was noted in the area of the antrum. Multiple biopsies were taken. The distal esophagus did not have a clear GE junction. She had a 5 cm area of mucosal changes that appeared to be consistent with intestinal metaplasia secondary to her longstanding reflux disease. Biopsies were taken of all major areas and submitted in 1 container. The remainder of the esophageal exam was unremarkable. The patient tolerated the procedure well and was taken to recovery. /[id number] [id number] /DIAL
[2019-10-29] MEDS: Pantoprazole 40 MG Vial IVPUSH SCH (20:45)
[2019-10-30] MEDS: Lactated Ringers 1,000 ML IV SCH ×2 (04:51→12:37)
--- NOTE | 2019-10-30 10:16 | PCM.PN ---
- General Info Date of Service: 10/30/19 Subjective Update: Neelam had EGD yesterday, esophagitis with moderate hiatal hernia, some metaplasia, biopsies are pending. See Dr Vergara's report. Respiratory viral panel pending. COVID was negative. She is feeling better today. No muscle aches. No coughing or shortness of breath. No nausea or vomiting. Had some bowel movements today. She is tolerating clear liquids. - Patient Data Vitals - Most Recent: Last Vital Signs Temp 98.4 F 10/30/19 04:00 Pulse 60 10/30/19 04:00 Resp 16 10/30/19 04:00 BP 134/69 10/30/19 04:00 Pulse Ox 97 10/30/19 04:00 Weight - Most Recent: 168 lb I&O - Last 24 Hours: Intake & Output 10/29/19 10/30/19 10/30/19 22:59 06:59 14:59 Intake Total 985 1025 Balance 985 1025 Lab Results Last 24 Hours: Laboratory Results - last 24 hr 10/30/19 10/30/19 Range/Units 06:30 06:30 WBC 3.3 L (4.5-12.0) X10-3/uL RBC 3.76 (3.23-5.20) x10(6)uL Hgb 11.2 L (11.5-15.5) g/dL Hct 34.0 (30.0-51.3) % MCV 90.4 (80-96) fL MCH 29.8 (27.7-33.6) pg MCHC 32.9 (32.2-35.4) g/dL RDW 15.1 (11.5-15.5) % Plt Count 160 (125-369) X10(3)uL MPV 8.1 (7.4-10.4) fL Neut % (Auto) 54.5 (46-82) % Lymph % (Auto) 32.7 (13-37) % [place] % (Auto) 7.5 (4-12) % Eos % (Auto) 5 (1.0-5.0) % Baso % (Auto) 1 (0-2) % Neut # (Auto) 1.8 (1.6-8.3) # Lymph # (Auto) 1.1 (0.6-5.0) # [place] # (Auto) 0.2 (0.0-1.3) # Eos # (Auto) 0.2 (0.0-0.8) # Baso # (Auto) 0.0 (0.0-0.2) # Sodium 144 (135-145) mmol/L Potassium 4.0 (3.5-5.3) mmol/L Chloride 109 (100-110) mmol/L Carbon Dioxide 32 (21-32) mmol/L BUN 6 L (7-18) mg/dL Creatinine 0.8 (0.55-1.02) mg/dL Est Cr Clr Drug Dosing 57.74 mL/min Estimated GFR (MDRD) > 60 (>60) BUN/Creatinine Ratio 7.5 L (9-20) Glucose 113 (80-116) mg/dL Calcium 8.6 (8.6-10.2) mg/dL Ghassan Results Last 24 Hours: Microbiology 10/28/19 09:35 Aerobic Blood Culture - Preliminary Blood - Venous - Lab Draw NO GROWTH AFTER 2 DAYS Anaerobic Blood Culture - Final 10/28/19 09:30 Aerobic Blood Culture - Preliminary Blood - Venous NO GROWTH AFTER 2 DAYS Anaerobic Blood Culture - Preliminary NO GROWTH AFTER 2 DAYS 10/28/19 10:26 Quick Strep Confirmation Culture - Preliminary Throat NO GROUP A STREP ISOLATED REFERENCE RANGE: NEGATIVE Group A Streptococcus Rapid Screen - Final NEGATIVE STREP A SCREEN REFERENCE RANGE: NEGATIVE Med Orders - Current: Current Medications Acetaminophen (Tylenol) 650 mg RECTAL Q4H PRN PRN Reason: Fever Lactated Ringer's (Ringers, Lactated) 1,000 mls @ 75 mls/hr IV ASDIRECTED [facility] Last Admin: 10/30/19 04:51 Dose: 125 mls/hr Documented by: Ondansetron HCl (Zofran) 4 mg IVPUSH Q6H PRN PRN Reason: Nausea/Vomiting Pantoprazole Sodium (Protonix Iv) 40 mg IVPUSH Q24H [facility] Last Admin: 10/29/19 20:45 Dose: 40 mg Documented by: Sodium Chloride (Saline Flush) 10 ml FLUSH ASDIRECTED PRN PRN Reason: Keep Vein Open Last Admin: 10/28/19 09:50 Dose: 10 ml Documented by: Discontinued Medications Acetaminophen (Tylenol) 650 mg PO NOW ONE Stop: 10/28/19 09:45 Last Admin: 10/28/19 09:35 Dose: 650 mg Documented by: Acetaminophen (Tylenol) 650 mg RECTAL NOW ONE Stop: 10/28/19 09:45 Last Admin: 10/28/19 10:17 Dose: 650 mg Documented by: Diazepam (Valium.) 5 mg PO ONETIME ONE Stop: 10/28/19 16:28 Last Admin: 10/28/19 16:56 Dose: 5 mg Documented by: Sodium Chloride (Normal Saline) 1,000 mls @ 500 mls/hr IV ASDIRECTED [facility] Last Admin: 10/28/19 09:50 Dose: 500 mls/hr Documented by: Dextrose/Lactated Ringer's (Dextrose 5%-Lactated Ringers) 1,000 mls @ 150 mls/hr IV ASDIRECTED [facility] Lactated Ringer's (Ringers, Lactated) 1,000 mls @ 500 mls/hr IV ONETIME ONE Stop: 10/28/19 13:29 Last Admin: 10/28/19 11:35 Dose: 500 mls/hr Documented by: Iopamidol (Isovue-370 (76%)) 100 ml IV ONETIME ONE Stop: 10/28/19 17:06 Last Admin: 10/28/19 17:30 Dose: 90 ml Documented by: Ondansetron HCl (Zofran) 8 mg IVPUSH ONETIME ONE Stop: 10/28/19 09:46 Last Admin: 10/28/19 10:14 Dose: 8 mg Documented by: Pantoprazole Sodium (Protonix Iv) 40 mg IVPUSH ONETIME ONE Stop: 10/28/19 11:09 Last Admin: 10/28/19 13:57 Dose: 40 mg Documented by: Pantoprazole Sodium (Protonix Iv) Confirm Administered Dose 40 mg .ROUTE .STK-MED ONE Stop: 10/28/19 13:55 Last Admin: 10/28/19 13:58 Dose: Not Given Documented by: - Exam General: Alert, Oriented, Cooperative, No Acute Distress Lungs: Clear to Auscultation, Normal Respiratory Effort. No: Wheezing Cardiovascular: Regular Rate, Regular Rhythm GI/Abdominal Exam: Normal Bowel Sounds, Soft, No Distention, Tender (mild TTP epigastric). No: Guarding, Rigid, Rebound Extremities: No Pedal Edema Sepsis Event Note - Evaluation Sepsis Screening Result: No Definite Risk - Focused Exam Vital Signs: Vital Signs Temp Pulse Resp BP Pulse Ox 10/30/19 04:00 98.4 F 60 16 134/69 97 10/30/19 00:00 97.6 F 52 L 16 138/71 95 - Problem List & Annotations (1) Esophagitis SNOMED Code(s): 58191070 Code(s): K20.9 - ESOPHAGITIS, UNSPECIFIED Status: Acute Current Visit: Yes Annotation/Comment:: Biopsies pending. Protonix 40 mg bid. Follow up with Dr Vergara as outpatient to go over biopsies. (2) Hiatal hernia with GERD and esophagitis SNOMED Code(s): 440020815 Code(s): K44.9 - DIAPHRAGMATIC HERNIA WITHOUT OBSTRUCTION OR GANGRENE; K21.0 - GASTRO-ESOPHAGEAL REFLUX DISEASE WITH ESOPHAGITIS Status: Acute Current Visit: Yes Annotation/Comment:: Protonix 40 mg bid. Biopsies pending, if fails PPI treatment may benefit from Lap Milo given size of hernia. (3) Leukocytosis, unspecified SNOMED Code(s): 043376624, 639928557 Code(s): D72.829 - ELEVATED WHITE BLOOD CELL COUNT, UNSPECIFIED Status: Resolved Current Visit: Yes Qualifiers: Leukocytosis type: unspecified Qualified Code(s): D72.829 - Elevated white blood cell count, unspecified Annotation/Comment:: 3.3 this morning. Respiratory viral panel sent, results pending. (4) Epigastric abdominal pain SNOMED Code(s): 02660123 Code(s): R10.13 - EPIGASTRIC PAIN Status: Resolved Current Visit: Yes Annotation/Comment:: Hiatal hernia, esophagitis on CT. EGD today with Dr Vergara. (5) Coffee ground emesis SNOMED Code(s): 46382727 Code(s): K92.0 - HEMATEMESIS Status: Resolved Current Visit: Yes Annotation/Comment:: Biopsies pending. No further emesis. Hgb stable. (6) Anemia due to blood loss, acute SNOMED Code(s): 452040391 Code(s): D62 - ACUTE POSTHEMORRHAGIC ANEMIA Status: Acute Current Visit: Yes Annotation/Comment:: stablized at 11.2 today. Continue to monitor and adjust treatments as necessary. (7) Hypertension SNOMED Code(s): 11865921 Code(s): I10 - ESSENTIAL (PRIMARY) HYPERTENSION Status: Chronic Current Visit: Yes (8) Heartburn SNOMED Code(s): 87851960 Code(s): R12 - HEARTBURN Status: Chronic Current Visit: Yes (9) S/P hysterectomy with oophorectomy SNOMED Code(s): 929650082 Code(s): Z90.710 - ACQUIRED ABSENCE OF BOTH CERVIX AND UTERUS; Z90.721 - ACQUIRED ABSENCE OF OVARIES, UNILATERAL Status: Chronic Current Visit: Yes (10) Urinary incontinence SNOMED Code(s): 466370772 Code(s): R32 - UNSPECIFIED URINARY INCONTINENCE Status: Chronic Current Visit: Yes Qualifiers: Urinary Incontinence type: unspecified incontinence Qualified Code(s): R32 - Unspecified urinary incontinence Annotation/Comment:: after she had hysterectomy, bladder was nicked, controlled with Ditropan. (11) Elevated d-dimer SNOMED Code(s): 712560326 Code(s): R79.89 - OTHER SPECIFIED ABNORMAL FINDINGS OF BLOOD CHEMISTRY Status: Resolved Current Visit: Yes Annotation/Comment:: Negative for PE. - Problem List Review Problem List Initiated/Reviewed/Updated: Yes - My Orders Last 24 Hours: My Active Orders 10/29/19 09:30 VIRUS, RESP PANEL, DFA W/RFLX Routine 10/30/19 Lunch Soft Diet [DIET] - Plan Plan:: 1. EGD yesterday with Dr Vergara. Tolerating clear liquids, will advance to soft diet. Decreased LR to 75 ml/hr. 2. Ground glass nodules: Respiratory viral panel pending. 3. Anemia: monitor and adjust as needed. 4. Discharge plan once tolerating diet.
[2019-10-30] MEDS: Pantoprazole 40 MG Vial IVPUSH SCH (20:56)
[2019-10-31] MEDS: Lactated Ringers 1,000 ML IV SCH (02:03)
--- NOTE | 2019-10-31 16:28 | PCM.DCSUM1 ---
Discharge Summary - Hospital Course HPI Initial Comments: Neelam is 54 yr old female that presented to [facility] ED for 3 day history of non-productive cough, sore throat, muscle aches, headaches, chills. 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 She was not aware she had a fever until it was checked here, it was 102F. She was 97% RA. Told ER doc that she had an emesis this morning but stated to me that she had some nausea but no vomiting until she was in the ED, she had a 400 cc coffee ground emesis in ER that was guaiac positive for blood. History of heartburn, takes Omeprazole but never had an EGD before. She regularly sees Meghan Reis NP at [facility]. She took Tylenol this morning for headache/body aches. In ER her WBC was 15.7, 86% neutrophils, lactic acid 1.9, CRP 6.5, D Dimer 1.39. Sodium 133, Chloride 96, Creatinine 0.9. ALT 35, AST 30, Alkaline phosphatase 50, albumin 3.2. Lipase low at 60. COVID was negative. Influenza negative. Strep negative. CXR, portable unremarkable. Diagnosis: Stroke: No - Discharge Data Discharge Date: 10/31/19 Discharge Disposition: Home, Self-Care 01 Condition: Stable - Referral to Home Health Primary Care Physician: Meghan Reis PA-C - Discharge Diagnosis/Problem(s) (1) Metaplasia of esophagus SNOMED Code(s): 696264385 ICD Code: K22.70 - WARREN'S ESOPHAGUS WITHOUT DYSPLASIA Status: Acute (2) Esophagitis SNOMED Code(s): 71371898 ICD Code: K20.9 - ESOPHAGITIS, UNSPECIFIED Status: Acute Problem Details: Biopsies pending. Protonix 40 mg daily IV, will go home with oral bid. Follow up with Dr Vergara as outpatient to go over biopsies. (3) Hiatal hernia with GERD and esophagitis SNOMED Code(s): 586247453 ICD Code: K44.9 - DIAPHRAGMATIC HERNIA WITHOUT OBSTRUCTION OR GANGRENE; K21.0 - GASTRO-ESOPHAGEAL REFLUX DISEASE WITH ESOPHAGITIS Status: Acute Problem Details: Protonix 40 mg daily IV will go home with bid oral. Biopsies pending, if fails PPI treatment may benefit from Lap Milo given size of hernia. (4) Gastritis determined by endoscopy SNOMED Code(s): 0766567, 284076288 ICD Code: K29.70 - GASTRITIS, UNSPECIFIED, WITHOUT BLEEDING Status: Acute (5) Leukocytosis, unspecified SNOMED Code(s): 409853640, 268439446 ICD Code: D72.829 - ELEVATED WHITE BLOOD CELL COUNT, UNSPECIFIED Status: Resolved Problem Details: Resolved. COVID NEGATIVE. INFLUENZA NEGATIVE. Respiratory viral panel sent, results pending. Qualifiers: Leukocytosis type: unspecified Qualified Code(s): D72.829 - Elevated white blood cell count, unspecified (6) Epigastric abdominal pain SNOMED Code(s): 73160991 ICD Code: R10.13 - EPIGASTRIC PAIN Status: Resolved Problem Details: Resolved. (7) Coffee ground emesis SNOMED Code(s): 74459457 ICD Code: K92.0 - HEMATEMESIS Status: Resolved Problem Details: Biopsies pending. No further emesis. Hgb stable. (8) Anemia due to blood loss, acute SNOMED Code(s): 444835300 ICD Code: D62 - ACUTE POSTHEMORRHAGIC ANEMIA Status: Acute Problem Details: stablized at 11.2. (9) Hypertension SNOMED Code(s): 10619092 ICD Code: I10 - ESSENTIAL (PRIMARY) HYPERTENSION Status: Chronic (10) Heartburn SNOMED Code(s): 83594989 ICD Code: R12 - HEARTBURN Status: Chronic (11) S/P hysterectomy with oophorectomy SNOMED Code(s): 964296133 ICD Code: Z90.710 - ACQUIRED ABSENCE OF BOTH CERVIX AND UTERUS; Z90.721 - ACQUIRED ABSENCE OF OVARIES, UNILATERAL Status: Chronic (12) Urinary incontinence SNOMED Code(s): 305799237 ICD Code: R32 - UNSPECIFIED URINARY INCONTINENCE Status: Chronic Problem Details: after she had hysterectomy, bladder was nicked, controlled with Ditropan. Qualifiers: Urinary Incontinence type: unspecified incontinence Qualified Code(s): R32 - Unspecified urinary incontinence (13) Elevated d-dimer SNOMED Code(s): 834268749 ICD Code: R79.89 - OTHER SPECIFIED ABNORMAL FINDINGS OF BLOOD CHEMISTRY Status: Resolved Problem Details: Negative for PE. - Patient Summary/Data Operative Procedure(s) Performed: egd with biopsy Consults: Consultations 10/28/19 14:36 Consult to Physician [CONS] Routine Consulting Provider: Mike Vergara Call Completed to Consulting Physician: Yes Reason for Consult: coffee ground emesis Person Notified: Dr Vergara Date Notified: 10/28/19 Time Notified: 14:35 Hospital Course: Neelam was admitted for observation for fever, elevated WBC, unknown source, hematemesis with coffee ground blood, started on Protonix 40 mg IV daily, LR at 125 ml/hr. CT angio of chest for elevated D-Dimer, CT abdomen/pelvis obtained to find source of elevated WBC, showed ground glass nodules on CT chest, no pulmonary embolism, questioned hypersensitivity pneumonitis vs infectious cause. CT Abd/pelvis: Moderate hiatal hernia with esophagitis. No abdominal source of infection. UA was unremarkable. WBC trended down without antibiotics. Respiratory viral panel sent and pending at discharge. Hemoglobin dropped from 13.8 in ER to 11.1 and stable to 11.2 on discharge. No transfusions were needed. Dr Vergara was consulted, underwent EGD on 10/28 which showed gastritis, 5 cm hiatal hernia, no clear GE junction, 5 cm area of intestinal metaplasia of the distal esophagus, multiple biopsies were taken and pending. Her diet was advanced clear liquids to regular diet by time of discharge, no further hematemesis, abdominal pain improved. No fevers during admission, respiratory symptoms improved. Works in [employer]isted living, advised to return to work on Nov 04 while respiratory viral panel pending. - Patient Instructions Diet: Regular Diet as Tolerated Activity: As Tolerated Driving: May Drive Today Showering/Bathing: May Shower Notify Provider of: Fever, Increased Pain, Nausea and/or Vomiting Other/Special Instructions: Follow up with Dr Vergara in couple weeks to go over your biopsy results. Follow up with Meghan Reis PA-C or other provider for recheck of your hemoglobin, or worsening shortness of breath, coughing. May return to work Nov 04, note given. - Discharge Plan *PRESCRIPTION DRUG MONITORING PROGRAM REVIEWED*: Not Applicable *COPY OF PRESCRIPTION DRUG MONITORING REPORT IN PATIENT FABIAN: Not Applicable Prescriptions/Med Rec: Pantoprazole [ProTONIX] 40 mg PO BID 30 Days #60 tab.cr Home Medications: Home Meds EPINEPHrine [Epinephrine] 0.3 mg IM ASDIRECTED 05/29/17 [History] Venlafaxine HCl [Venlafaxine ER] 150 mg PO DAILY 05/29/17 [History] atorvaSTATin [Lipitor] 10 mg PO DAILY 05/29/17 [History] valACYclovir [Valtrex] 1,000 mg PO DAILY 05/29/17 [History] Acetaminophen [Tylenol Extra Strength] 500 - 1,000 mg PO Q4HR PRN 08/03/17 [History] SUMAtriptan succinate [Imitrex] 50 mg PO ASDIRECTED PRN 08/03/17 [History] lisinopriL [Prinivil] 40 mg PO DAILY 08/03/17 [History] Oxybutynin [Oxybutynin ER] 15 mg PO DAILY 10/28/19 [History] Multivit-Min/FA/Lycopene/Lut [Senior Tabs] 1 tab PO DAILY 10/29/19 [History] Aspirin [Aspirin EC] 81 mg PO DAILY #0 10/31/19 [Rx] Naproxen Sodium 220 mg PO BID PRN #0 10/31/19 [Rx] Pantoprazole [ProTONIX] 40 mg PO BID 30 Days #60 tab.cr 10/31/19 [Rx] Oxygen Therapy Mode: Room Air Patient Handouts: Esophagitis, Pantoprazole tablets Forms: ED Department Discharge Referrals: Meghan Reis PA-C [Ordering Only Provider] - Mike Vergara MD [Physician] - - Discharge Summary/Plan Comment DC Time >30 min.: No - General Info Date of Service: 10/31/19 Subjective Update: Feeling better today, coughing has decreased, no sputum production. No shortness of breath, fever, chills. No nausea or vomiting. Tolerated regular diet this morning. No diarrhea. Functional Status: Reports: Tolerating Diet, Ambulating, Urinating - Patient Data Vitals - Most Recent: Last Vital Signs Temp 98.3 F 10/31/19 07:44 Pulse 68 10/31/19 07:44 Resp 16 10/31/19 07:44 BP 156/82 H 10/31/19 07:44 Pulse Ox 97 10/31/19 07:44 Weight - Most Recent: 168 lb I&O - Last 24 hours: Intake & Output 10/31/19 10/31/19 10/31/19 06:59 14:59 22:59 Intake Total 653 Balance 653 MILENA Results - Last 24 hrs: Microbiology 10/28/19 09:30 Aerobic Blood Culture - Preliminary Blood - Venous NO GROWTH AFTER 3 DAYS Anaerobic Blood Culture - Preliminary NO GROWTH AFTER 3 DAYS 10/28/19 09:35 Aerobic Blood Culture - Preliminary Blood - Venous - Lab Draw NO GROWTH AFTER 3 DAYS Anaerobic Blood Culture - Final 10/28/19 10:26 Quick Strep Confirmation Culture - Final Throat NO GROUP A STREP ISOLATED REFERENCE RANGE: NEGATIVE Group A Streptococcus Rapid Screen - Final NEGATIVE STREP A SCREEN REFERENCE RANGE: NEGATIVE Med Orders - Current: Current Medications Discontinued Medications Acetaminophen (Tylenol) 650 mg PO NOW ONE Stop: 10/28/19 09:45 Last Admin: 10/28/19 09:35 Dose: 650 mg Documented by: Acetaminophen (Tylenol) 650 mg RECTAL NOW ONE Stop: 10/28/19 09:45 Last Admin: 10/28/19 10:17 Dose: 650 mg Documented by: Acetaminophen (Tylenol) 650 mg RECTAL Q4H PRN PRN Reason: Fever Diazepam (Valium.) 5 mg PO ONETIME ONE Stop: 10/28/19 16:28 Last Admin: 10/28/19 16:56 Dose: 5 mg Documented by: Sodium Chloride (Normal Saline) 1,000 mls @ 500 [facility]ls[facility] Last Admin: 10/28/19 09:50 Dose: 500 mls/hr Documented by: Dextrose/Lactated Ringer's (Dextrose 5%-Lactated Ringers) 1,000 mls @ 150 mls/hr IV ASDIRECTED ON [facility] OF [facility] Lactated Ringer's (Ringers, Lactated) 1,000 mls @ 500 mls/hr IV ONETIME ONE Stop: 10/28/19 13:29 Last Admin: 10/28/19 11:35 Dose: 500 mls/hr Documented by: Lactated Ringer's (Ringers, Lactated) 1,000 mls @ 75 mls[facility] Last Admin: 10/31/19 02:03 Dose: 125 mls/hr Documented by: Iopamidol (Isovue-370 (76%)) 100 ml IV ONETIME ONE Stop: 10/28/19 17:06 Last Admin: 10/28/19 17:30 Dose: 90 ml Documented by: Lisinopril (Prinivil) 40 mg PO DAILY ON [facility] OF [facility] Last Admin: 10/31/19 10:44 Dose: 40 mg Documented by: Ondansetron HCl (Zofran) 8 mg IVPUSH ONETIME ONE Stop: 10/28/19 09:46 Last Admin: 10/28/19 10:14 Dose: 8 mg Documented by: Ondansetron HCl (Zofran) 4 mg IVPUSH Q6H PRN PRN Reason: Nausea/Vomiting Pantoprazole Sodium (Protonix Iv) 40 mg IVPUSH ONETIME ONE Stop: 10/28/19 11:09 Last Admin: 10/28/19 13:57 Dose: 40 mg Documented by: Pantoprazole Sodium (Protonix Iv) Confirm Administered Dose 40 mg .ROUTE .STK-MED ONE Stop: 10/28/19 13:55 Last Admin: 10/28/19 13:58 Dose: Not Given Documented by: Pantoprazole Sodium (Protonix Iv) 40 mg IVPUSH Q24H ON [facility] OF [facility] Last Admin: 10/30/19 20:56 Dose: 40 mg Documented by: Sodium Chloride (Saline Flush) 10 ml FLUSH ASDIRECTED PRN PRN Reason: Keep Vein Open Last Admin: 10/28/19 09:50 Dose: 10 ml Documented by: - Exam General: Reports: Alert, Oriented, No Acute Distress Lungs: Reports: Clear to Auscultation, Normal Respiratory Effort. Denies: Crackles, Rales, Rhonchi, Wheezing Cardiovascular: Reports: Regular Rate, Regular Rhythm GI/Abdominal Exam: Normal Bowel Sounds, Soft, Non-Tender, No Distention Extremities: No Pedal Edema *Q Meaningful Use (DIS) - VTE *Q VTE Pharmacological Contraindications *Q: Patient Scheduled Surgery
== END 2019-10-31 13:40 | disposition home or self-care (01) | DRG 197 ==
LOC: FB.ED 09:05 → FB.MS 13:56
PROVIDERS: ADMIT Family Medicine; ATTEND Family Medicine
PROC: 0DB58ZX Excision of Esophagus, Via Natural or Artificial Opening Endoscopic, Diagnostic (ICD-10-PCS; principal; 2019-10-29)
PROC: 0DB68ZX Excision of Stomach, Via Natural or Artificial Opening Endoscopic, Diagnostic (ICD-10-PCS; 2019-10-29)
DX: J67.9 Hypersensitivity pneumonitis due to unspecified organic dust (principal); K92.0 Hematemesis; D62 Acute posthemorrhagic anemia; K21.0 Gastro-esophageal reflux disease with esophagitis; K44.9 Diaphragmatic hernia without obstruction or gangrene; K29.70 Gastritis, unspecified, without bleeding; Z20.828 Contact with and (suspected) exposure to other viral communicable diseases; I10 Essential (primary) hypertension; R79.89 Other specified abnormal findings of blood chemistry; K22.70 Barrett's esophagus without dysplasia; E78.00 Pure hypercholesterolemia, unspecified; E66.9 Obesity, unspecified; Z90.710 Acquired absence of both cervix and uterus; Z90.721 Acquired absence of ovaries, unilateral; Z88.0 Allergy status to penicillin; Z91.030 Bee allergy status; Z79.899 Other long term (current) drug therapy; Z68.32 Body mass index [BMI] 32.0-32.9, adult
CPT/HCPCS: 00731-QZ; 36415; 71045; 71275; 74177; 80048; 80053; 81001; 82271; 83605; 83690; 85014; 85018; 85025; 85027; 85379; 86140; 87040; 87081; 87260; 87275; 87276; 87279; 87280; 87299; 87804; 87804-59; 87880-QW; 88305; 88313; 88342; 96361; 96374; 96375; 99284-25; 99285; A9270-GY; C9113; J2001; J2250; J2405; J2704; J7030; J7120; Q9967; U0002